=== PATIENT | male | born 1960 | race Caucasian/White ===

== ENCOUNTER → 2018-03-08 15:03 | Outpatient (CLI) | payer BC, SELFPAY ==
[2018-03-11 09:55] LABS: 25-Hydroxy D Total 53 ng/mL; 25-Hydroxy D2 <4.0 ng/mL; 25-Hydroxy D3 53 ng/mL
== END ==
PROVIDERS: PCP Student in an Organized Health Care Education/Training Program; Visit Provider Internal Medicine Sleep Medicine
DX: E55.9 Vitamin D deficiency, unspecified (principal)
CPT/HCPCS: 36415; 82306

== ENCOUNTER → 2018-03-23 15:01 | Outpatient (REF) | payer SELFPAY | LOC: OM 15:01 | PROVIDERS: PCP Student in an Organized Health Care Education/Training Program; Visit Provider Nurse Practitioner Family | DX: Z02.1 Encounter for pre-employment examination (principal) | CPT/HCPCS: 99455 ==

== ENCOUNTER 2018-12-27 08:59 | Outpatient (CLI) | payer MEDICAID, SELFPAY ==
[2018-12-27 10:09] LABS: Lithium 0.52 mmol/L (0.60-1.20)
[2018-12-27 10:24] LABS: Anion Gap 8.3 mmol/L (3-11); BUN 20 mg/dL (7-18); CO2 26.7 mmol/L (21.0-32.0); CREATININE 0.91 mg/dL (0.70-1.30); Chloride 104 mmol/L (98-107); Glucose 108 mg/dL (70-100); Potassium 4.5 mmol/L (3.5-5.1); Sodium 139 mmol/L (136-145); TSH (W/Ref FT4) 0.95 uIU/mL (0.358-3.74)
== END 2018-12-27 09:19 ==
PROVIDERS: PCP Nurse Practitioner Adult Health; Visit Provider Psychiatry & Neurology Psychiatry
DX: F31.81 Bipolar II disorder (principal); Z79.899 Other long term (current) drug therapy; Z51.81 Encounter for therapeutic drug level monitoring
CPT/HCPCS: 36415; 80048; 80178; 84443

== ENCOUNTER 2019-10-11 09:21 | Outpatient (CLI) | payer MEDICAID, SELFPAY ==
[2019-10-11 09:50] LABS: Bilirubin Small (Negative); Blood Negative (Negative); Clarity Clear (Clear); Glucose Negative (Negative); Ketones Negative (Negative); Leukocyte Esterase Trace (Negative); Nitrite Negative (Negative); Urobilinogen 0.2 EU/dL (Up TO 0.2)
[2019-10-11 09:50] LABS: Abs Immature Grans 0.03 k/cumm (0.0-0.09); Absolute Basophil Count 0.04 k/cumm (0.0-0.2); Absolute Eosinophil Count 0.36 k/cumm (0.0-0.7); Absolute Lymphocyte Count 2.05 k/cumm (1.2-3.4); Absolute Monocyte Count 0.56 k/cumm (0.11-0.7); Absolute Neutrophil Count 4.01 k/cumm (1.2-6.7); Basophils % 0.6; Eosinophils % 5.1; HCT 46.7 % (40.0-50.0); HGB 15.4 g/dL (13.5-17.5); Immature Grans % 0.4 %; Lymphocytes % 29.1; Mean Corpuscular Hemoglobin 30.1 pg (27.0-33.0); Mean Corpuscular Volume 91.2 fL (80-95); Mean Platelet Volume 9.2 fL (8.0-11.0); Monocytes % 7.9; Neutrophils % 56.9; Platelet Count 259 x1000/uL (130-400); RBC 5.12 m/cumm (4.50-6.00); RBC Distribution Width 14.2 % (11.8-14.1); White Blood Cell Count 7.05 k/cumm (4.4-10.8)
[2019-10-11 10:07] LABS: Bacteria Negative HPF (Negative); C & S Indicated? Yes; Casts Negative LPF (Negative); Crystals Negative HPF (Negative); Epithelial Cells Few HPF (Negative); Mucus Trace (Negative); RBC 0-2 HPF (0-2); WBC 20-50 HPF (0-5)
[2019-10-11 11:33] LABS: ALT 42 U/L (16-63); AST 20 U/L (15-37); Albumin 4.4 g/dL (3.4-5.0); Alkaline Phosphatase 74 U/L (46-116); Anion Gap 9.1 mmol/L (3-11); BUN 18 mg/dL (7-18); Bilirubin, Total 1.1 mg/dL (0.2-1.0); CO2 27.9 mmol/L (21.0-32.0); CREATININE 1.08 mg/dL (0.70-1.30); Calcium 9.2 mg/dL (8.5-10.1); Chloride 102 mmol/L (98-107); Cholesterol 269 mg/dL (<200); Glucose 96 mg/dL (74-106); HDL Cholesterol 46 mg/dL (40-60); Potassium 3.8 mmol/L (3.5-5.1); Sodium 139 mmol/L (136-145); TSH (W/Ref FT4) 1.61 uIU/mL (0.36-3.74); Total Protein 7.6 g/dL (6.4-8.2); Triglyceride 406 mg/dL (<150)
[2019-10-11 11:47] LABS: LDL CHOLESTEROL 159 mg/dL (<100)
[2019-10-12 04:34] LABS: Vitamin D 25 Total 47.8 ng/ml (30-100)
== END 2019-10-11 09:41 ==
PROVIDERS: PCP Nurse Practitioner Adult Health; Visit Provider Nurse Practitioner Adult Health
DX: K21.9 Gastro-esophageal reflux disease without esophagitis (principal); K22.719 Barrett's esophagus with dysplasia, unspecified; R03.0 Elevated blood-pressure reading, without diagnosis of hypertension; R63.8 Other symptoms and signs concerning food and fluid intake
CPT/HCPCS: 36415; 80053; 80061; 82306; 83721; 81003; 81015; 83735; 84443; 85025; 87086

== ENCOUNTER 2020-03-15 01:35 | Outpatient (CLI) | payer MEDICAID, SELFPAY ==
[2020-03-15 11:17] LABS: Bilirubin, Total 0.5 mg/dL (0.2-1.0); Calculated LDL 147 mg/dL (<100); Cholesterol 243 mg/dL (<200); HDL Cholesterol 46 mg/dL (40-60); Triglyceride 251 mg/dL (<150)
== END 2020-03-15 01:55 ==
PROVIDERS: PCP Nurse Practitioner Adult Health; Visit Provider Nurse Practitioner Adult Health
DX: E78.5 Hyperlipidemia, unspecified (principal); E78.1 Pure hyperglyceridemia; R17 Unspecified jaundice
CPT/HCPCS: 36415; 80061; 82247

== ENCOUNTER 2020-04-19 02:46 | Outpatient (CLI) | payer MEDICAID, SELFPAY ==
[2020-04-19 15:51] LABS: Folate 4.8 ng/mL (8.6-20.0); Vitamin B12 341 pg/mL (193-986)
[2020-04-24 10:25] LABS: Thiamine (Vitamin B1), WB 126 nmol/L (70-180)
== END 2020-04-19 03:06 ==
PROVIDERS: PCP Nurse Practitioner Adult Health; Visit Provider Nurse Practitioner Adult Health
DX: F10.20 Alcohol dependence, uncomplicated (principal); R20.2 Paresthesia of skin
CPT/HCPCS: 36415; 82607; 82746; 84425

== ENCOUNTER 2020-05-31 03:34 | Outpatient (CLI) | payer MEDICAID, SELFPAY ==
[2020-05-31 10:40] LABS: Lithium 0.89 mmol/L (0.60-1.20)
[2020-05-31 10:47] LABS: ALT 43 U/L (16-63); AST 23 U/L (15-37); Albumin 4.5 g/dL (3.4-5.0); Alkaline Phosphatase 73 U/L (46-116); Anion Gap 11.2 mmol/L (3-11); BUN 18 mg/dL (7-18); Bilirubin, Total 0.5 mg/dL (0.2-1.0); CO2 25.8 mmol/L (21.0-32.0); CREATININE 1.09 mg/dL (0.70-1.30); Calcium 9.1 mg/dL (8.5-10.1); Chloride 102 mmol/L (98-107); Glucose 93 mg/dL (74-106); Potassium 4.3 mmol/L (3.5-5.1); Sodium 139 mmol/L (136-145); Total Protein 7.7 g/dL (6.4-8.2)
[2020-05-31 10:55] LABS: TSH 1.18 uIU/mL (0.36-3.74)
[2020-06-03 16:39] LABS: HIV-1/2 Ag & Ab Screen Negative (Negative)
[2020-06-11 12:30] LABS: Hepatitis B Core Antibody Negative (Negative); Hepatitis B surface Ag Negative (Negative); Hepatitis C Ab w Rflx HCV PCR Negative (Negative)
[2020-06-11 12:31] LABS: Hepatitis A Antibody IgM Negative (Negative)
== END 2020-05-31 03:54 ==
PROVIDERS: Psychiatry & Neurology Psychiatry; PCP Nurse Practitioner Adult Health; Visit Provider Nurse Practitioner Adult Health
DX: F31.81 Bipolar II disorder (principal); F10.10 Alcohol abuse, uncomplicated; Z71.89 Other specified counseling
CPT/HCPCS: 36415; 80053; 86704; 86709; 86803; 87340; 87389; 80178; 84443

== ENCOUNTER 2020-09-25 20:58 | Emergency (ER) | payer MEDICAID, SELFPAY ==
[2020-09-25 21:03] VITALS: BP 153/95; PULSE 60; RESP 18; TEMP 36.4; O2SAT 99
--- NOTE | 2020-09-25 21:20 | ED.GENADUL_ITS ---
Discharge Plan Disposition Patient Disposition: HOME Condition: Improving Discharge Details Clinical Impression: Left maxillary sinusitis, Concussion Primary Care Provider: Kathrin Rosas ED Provider: Marcos Santiago Home Meds and New Rx's Prescriptions: New amoxicillin-pot clavulanate 875-125 mg tablet 1 tab PO BID 10 Days Qty: 20 RF: 0 Continued biotin 10,000 mcg capsule 10,000 mcg PO DAILY RF: 0 vitamin B complex [B Complex-Vitamin B12] Tablet 1 tab PO DAILY RF: 0 magnesium 200 mg tablet 500 mg PO DAILY RF: 0 fish oil-fat acid [id number] 1,200 mg (400 [id number]) capsule 1,300 cap PO DAILY RF: 0 aspirin 81 mg tablet,delayed release (DR/EC) 81 mg PO DAILY RF: 0 venlafaxine 150 mg tablet extended release 24hr 150 mg PO QHS RF: 0 amlodipine 5 mg tablet 5 mg PO DAILY Qty: 30 RF: 1 lithium carbonate 300 mg tablet 900 mg PO HS RF: 0 omeprazole 20 mg capsule,delayed release(DR/EC) 20 mg PO DAILY Qty: 90 RF: 3 trazodone 50 mg tablet 100 mg PO PRN RF: 0 cyanocobalamin (vitamin B-12) [Vitamin B-12] 1,000 mcg Tablet 1,000 mcg PO DAILY RF: 0 cholecalciferol (vitamin D3) 5,000 UNIT capsule 10,000 unit PO DAILY RF: 0 Discharge Instructions Instructions: Sinusitis (ED), Concussion (ED) Additional Instructions: Home to rest tonight. I recommend you take Benadryl 25 mg at bedtime to help with sleep and decongestion. Patient antibiotics as prescribed. You may continue Tylenol and/or ibuprofen as needed for pain. Return if develop a fever, stiff neck, worsening headache, or any other acute concerns. Medical Decision Making 60-year-old male presents from home. States he has had a left-sided headache since he slipped and fell on icy parking lot 2 days ago. Denies a loss of consciousness but feels he fell on his left side of his head. No neck/back/chest pain. Has mild left arm pain. No recent illness, no neck stiffness and no fever. He arrives here slightly hypertensive but with otherwise reassuring exam. Differential diagnosis includes concussion, benign cephalgia, acute skull injury or intracranial hemorrhage. IV access established, patient referred for noncontrast CT scan of the head, given parenteral medications and fluids. CT without acute intracranial injury. There is note of mucosal thickening left maxillary sinus, which may be consistent with maxillary sinusitis given the patient's localization of discomfort to that area. Following medications she is improved and rates his headache has diminished from 10 to 4 out of 10. He has had recurrent sinusitis in the past and therefore will elect to treat with a course of Augmentin. He is stable and improved, appropriate for discharge to home. HPI General Mode of arrival: ambulatory . Date/Time Provider Initiated Documentation: 09/25/20 20:58 . Limitations to Documentation: no limitations . Information obtained by: patient . History of Present Illness 60 year old M presents to the emergency department with the chief complaint of Left-sided headache, described as severe, Quality is described as dull and constant, and is localized to the head and left. Patient reports no radiation. Patient started experiencing this day(s) and it has been constant. No relieving factors improve symptom(s), No exacerbating factors reported . Patient notes headaches; denies loss of appetite and syncope. Patient did receive the following treatments prior to arrival, NSAID and other (Tylenol) Related Data Home Medications Medication Instructions Recorded Confirmed cholecalciferol (vitamin D3) 10,000 unit PO DAILY 12/16/17 09/25/20 lithium carbonate 300 mg tablet 900 mg PO HS tab 10/17/18 09/25/20 biotin 10,000 mcg capsule 10,000 mcg PO DAILY 10/06/19 09/25/20 aspirin 81 mg tablet,delayed 81 mg PO DAILY 12/15/19 09/25/20 release omeprazole 20 mg capsule,delayed 20 mg PO DAILY #90 cap 03/22/20 09/25/20 release venlafaxine 150 mg tablet,extended 150 mg PO QHS 04/15/20 09/25/20 release 24 hr fish oil-fat acid comb8-herb 1,300 cap PO DAILY cap 06/28/20 09/25/20 [id number] 1,200 mg (400 [id number]) cap magnesium 200 mg tablet 500 mg PO DAILY tab 06/28/20 09/25/20 vitamin B complex 1 tab PO DAILY 06/28/20 09/25/20 amlodipine 5 mg tablet 5 mg PO DAILY #30 tab 08/16/20 09/25/20 trazodone 50 mg tablet 100 mg PO PRN tab 08/16/20 09/25/20 amoxicillin-pot clavulanate 1 tab PO BID 10 Days #20 tab 09/25/20 cyanocobalamin (vitamin B-12) 1,000 mcg PO DAILY 09/25/20 09/25/20 [Vitamin B-12] Previous Rx's Medication Instructions Recorded omeprazole 20 mg capsule,delayed 20 mg PO DAILY #90 cap 03/22/20 release amlodipine 5 mg tablet 5 mg PO DAILY #30 tab 08/16/20 amoxicillin-pot clavulanate 1 tab PO BID 10 Days #20 tab 09/25/20 Allergies Allergy/AdvReac Type Severity Reaction Status Date / Time No Known Allergies Allergy Verified 09/25/20 21:15 General Stated Complaint: Headache HUBER: 3 Review of Systems Narrative: 6 systems reviewed and otherwise negative. [facility] Medical History Alcohol use disorder (05/03/12) Barretts esophagus (03/21/15) endoscopy 03/11/15 Gabriella, 09/28/17 Chirag, repeat 3 yrs 2020 Bipolar disorder (05/03/12) [facility] Bradycardia (02/15/15) Cerumen impaction Hx wax removal needed, lodged in today (01/12/20). PLan to use debrox x2-3 days before returning. Seeing ENT next month (January 2020). Erectile dysfunction (01/01/16) Effexor Esophageal reflux (05/03/12) Long-term Omeprazole History of vertigo EPisodes of sensation of room spinning .. has resolved on its own, but happens out of nowhere it seems Hypertriglyceridemia Increased BMI (05/03/12) Obstructive sleep apnea (10/19/15) Tx: Mouth guard & weight loss severe AHI 44.4 CPAP Enedelia Degre,STAFF NURSE ANESTHETIST ASIA (obstructive sleep apnea) Total bilirubin, elevated Tubular adenoma of colon (12/21/17) 3 yr f/u 2020 Surgical History Colonoscopy - MAC (12/21/17) EGD - MAC (09/28/17) EGD w/ Bx (03/11/15) Excision, Lesion (09/28/17) right shoulder skin tag Family History Mother , age 85 Alzheimer disease Diabetes Father , 88yo HF Essential hypertension Bladder cancer COPD (chronic obstructive pulmonary disease) Heart disease [place], CABG Neuropathy Other Multiple polyps of sigmoid colon Social History Smoking/Tobacco Use Status: Former Tobacco Use Quit Date: 07/26/16 Tobacco: How many years used: 15 Smoking risk assessment performed?: Yes Alcohol Intake: current Alcohol Intake frequency: 0-2 drinks per day Alcohol type: wine and hard liquor Details: When he was smoking - only had a cigar a few times a week. EO Drug use: Occasionally Substance use type: marijuana Details: rarely Adopted: No Caregiver/Support person: No Foster care: No Household members: none Housing: apartment Number of Children: 2 Communication Needs: None Education Level: college Details: Associate Business Do you need help understanding health information?: Never current occupation: Caregiver Do you think of yourself as: straight/heterosexual Current gender identity: male What is your relationship status?: Panel score (0-1 are the most socially isolated patients): 0 What type of physical activity do you participate in: walking Duration: 30-45 minutes/day Frequency: 3-4 times per week Ailyn/Restorationist: Jewish Seatbelt use: always Helmet use: Yes Drive intox or ride w/intox waste collection driver: No Working smoke detector in home: Yes Fire extinguisher in home: Yes Carbon monox detector in home: Yes Firearms in home: No Do you feel safe at home: Yes Victim of physical abuse: No Victim of emotional abuse: No Victim of sexual abuse: No Exam Narrative Exam Narrative: GEN: awake, alert, oriented 3. Pleasant, well groomed, interactive. HEAD: Normocephalic, atraumatic ENT: Mucous membranes moist, tympanic membranes clear bilaterally, external ear exam unremarkable EYES: PERRL, EOMI NECK: Full ROM, no ERICA, no menigismus, no step-off or deformity. CHEST/RESP: Nontender, clear to auscultation bilateral, no wheeze/rhonchi/rales Back: Nontender, no step-off or deformity. CARDIOVASCULAR: RRR, no murmur, rub pedro. 2+ Rad pulse bilateral ABDOMEN: Soft, nontender, no mass. +Bowel sounds EXT: Full ROM, no edema, no rash. Mild diffuse left humerus tenderness with out point bony tenderness Neuro: Grossly normal neurologic exam, conversant, interactive. Psych: Speech fluent, thoughts congruent, affect normal Course Vital Signs Vital signs: Vital Signs Temperature 36.4 C L 09/25/20 21:03 Pulse 60 09/25/20 21:03 Respiratory Rate 18 09/25/20 21:03 Blood Pressure 153/95 H 09/25/20 21:03 Pulse Oximetry 99 09/25/20 21:03 Temperature 36.4 C L 09/25/20 21:03 Temperature Source Skin 09/25/20 21:03 Pulse 60 09/25/20 21:03 Respiratory Rate 18 09/25/20 21:03 Respiratory Effort Non-Labored 09/25/20 21:15 Blood Pressure 153/95 H 09/25/20 21:03 Blood Pressure Position Sitting 09/25/20 21:03 Pulse Oximetry 99 09/25/20 21:03 Oxygen Delivery Method Room Air 09/25/20 21:03 Oxygen Flow Rate 0 09/25/20 21:03 Pain Level 8 09/25/20 21:17
--- NOTE | 2020-09-25 21:30 | DI.CT_ITS ---
EXAM: CT HEAD WO CLINICAL HISTORY: L headache after fall. TECHNIQUE: Imaging Protocol: Axial computed tomography images with coronal and sagittal reformatted images were created and reviewed COMPARISON: No exams were available for comparison FINDINGS: Ventricles and Extra axial spaces: Normal in size and morphology for the patient's age. Hemorrhage: None. Cerebral parenchyma: Normal. No evidence of acute territorial infarct. Midline shift: None. Brainstem/Cerebellum: Normal. Calvarium: Normal. Visualized Paranasal sinuses/Mastoids: Mild mucosal thickening in the left maxillary sinus. The jodie ining visualized paranasal sinuses and mastoid air cells are clear. Soft Tissues: Unremarkable. IMPRESSION: No acute intracranial process. RADIATION DOSE DELIVERED: 804.05mGy.cm Total DLP DATA REPOSITORY: All CT scans at this facility are submitted to the National Radiology Data Registry (NRDR) Dose Index Registry (DIR) with the [employer] (A[employer]). RADIATION OPTIMIZATION: All CT scans at this facility use at least one of these dose optimization te chniques: automated exposure control; mA and/or kV adjustment per patient size (includes targeted exa ms where dose is matched to clinical indication); or iterative reconstruction.
--- NOTE | 2020-09-25 21:42 | DI.VRAD_ITS ---
PROCEDURE INFORMATION: Exam: CT Head Without Contrast Exam date and time: 09/25/2020 9:25 PM Age: 60 years old Clinical indication: Pain; Post-traumatic; Patient HX: Fell on ice 2 days ago, no loc, no HX migraines, intense headache x2 days. TECHNIQUE: Imaging protocol: Computed tomography of the head without contrast. Total images: 1025 Radiation optimization: All CT scans at this facility use at least one of these dose optimization techniques: automated exposure control; mA and/or kV adjustment per patient size (includes targeted exams where dose is matched to clinical indication); or iterative reconstruction. COMPARISON: No relevant prior studies available. FINDINGS: Brain: No intra or extra axial bleed. No edema or mass effect. The central zhong structures and cortical ribbon are maintained. Cerebral ventricles: No hydrocephalus. Basal cisterns are patent. Bones/joints: There is a probable old ununited left zygomatic arch fracture. Paranasal sinuses: There is a tiny amount mucosal thickening in the visualized left maxillary sinus Mastoid air cells: Mastoid air cells are clear. Orbital cavity: Unremarkable. Soft tissues: Unremarkable. IMPRESSION: No acute intracranial abnormality. Dictated and Authenticated by: Marcos Mejia MD. Ordering:VAMSI Rodríguez MD
[2020-09-25] MEDS: Metoclopramide 10 MG/2 ML VIAL IVP (22:05)
[2020-09-25] MEDS: Ketorolac 30 MG/ML VIAL IVP (22:06)
[2020-09-25] MEDS: Normal Saline 1,000 ML 1000 ML IV (22:06)
[2020-09-25] MEDS: Dexamethasone 4 MG/ML VIAL IVP (22:06)
[2020-09-25] MEDS: Amox. 875/Clav. 125, 2 TABS/BTL 1 TAB PO (22:42)
[2020-09-25 22:43] VITALS: BP 132/81; PULSE 55; RESP 16; O2SAT 98
[2020-09-25] MEDS: diphenhydrAMINE 25 MG CAP PO (22:43)
== END 2020-09-25 22:48 | disposition home or self-care (01) ==
PROVIDERS: Emergency Provider Emergency Medicine; PCP Nurse Practitioner Adult Health
DX: S06.0X0A Concussion without loss of consciousness, initial encounter (principal); W00.0XXA Fall on same level due to ice and snow, initial encounter; J01.00 Acute maxillary sinusitis, unspecified
CPT/HCPCS: 96361; 96374; 96375; 99284; 70450; J1100; J1885; J2765

== ENCOUNTER 2021-01-14 03:12 | Outpatient (CLI) | payer MEDICAID, SELFPAY ==
[2021-01-14 11:23] LABS: Abs Immature Grans 0.05 10^3/uL (0.0-0.06); Absolute Basophil Count 0.06 10^3/uL (0.0-0.2); Absolute Eosinophil Count 0.28 10^3/uL (0.0-0.7); Absolute Lymphocyte Count 1.82 10^3/uL (1.2-3.4); Absolute Monocyte Count 0.38 10^3/uL (0.1-0.8); Absolute Neutrophil Count 3.67 10^3/uL (1.2-6.7); Eosinophils % 4.5; HCT 43.3 % (40.0-50.0); HGB 14.1 g/dL (13.5-17.5); Immature Grans % 0.8; Lymphocytes % 29.1; MCH 29.7 pg (27.0-33.0); MCHC 32.6 % (32.0-36.0); MCV 91.4 fL (80-95); MPV 9.3 fL (8.0-11.0); Monocytes % 6.1; Neutrophils % 58.5; Nucleated RBC 0 %; Platelet Count 254 10^3/uL (130-400); RBC 4.74 10^6/uL (4.36-5.78); RDW 13.2 % (11.8-14.1); RDW-SD 44.8 fL; WBC 6.26 10^3/uL (4.4-10.8)
[2021-01-14 11:40] LABS: Hemoglobin A1C 5.2 % (<5.7)
[2021-01-14 13:31] LABS: ALT 34 U/L (16-63); AST 17 U/L (15-37); Albumin 4.2 g/dL (3.4-5.0); Alkaline Phosphatase 80 U/L (46-116); Anion Gap 11.1 mmol/L (3-11); BUN 13 mg/dL (7-18); Bilirubin, Total 0.6 mg/dL (0.2-1.0); CO2 24.9 mmol/L (21.0-32.0); CREATININE 0.9 mg/dL (0.70-1.30); Calcium 8.9 mg/dL (8.5-10.1); Chloride 104 mmol/L (98-107); FREE T4 0.83 ng/dL (0.76-1.46); Glucose 109 mg/dL (74-106); Magnesium 2.3 mg/dL (1.8-2.4); Potassium 4.1 mmol/L (3.5-5.1); Sodium 140 mmol/L (136-145); TSH 0.77 uIU/mL (0.36-3.74); Total Protein 7.5 g/dL (6.4-8.2)
[2021-01-14 13:55] LABS: Iron 106 ug/dL (65-175); Total Iron Binding Capacity 368 ug/dL (250-450); Transferrin Sat 29 % (20-55)
[2021-01-14 14:46] LABS: Ferritin 881 ng/mL (26-388); Folate 19.1 ng/mL (8.6-20.0); Vitamin B12 746 pg/mL (193-986)
[2021-01-14 16:24] LABS: T3,Free 3.6 pg/mL (2.8-5.3)
[2021-01-14 16:29] LABS: Calculated LDL 155 mg/dL (<100); Cholesterol 267 mg/dL (<200); HDL Cholesterol 50 mg/dL (40-60); Triglyceride 310 mg/dL (<150)
[2021-01-15 11:21] LABS: Homocysteine 14.2 umol/L (5.0-13.9)
[2021-01-16 10:01] LABS: Lipoprotein (a) 62 mg/dL (<=30)
[2021-01-18 08:08] LABS: Thiamine (Vitamin B1), WB 143 nmol/L (70-180)
== END 2021-01-14 03:13 | disposition home or self-care (01) ==
LOC: LBO 03:12
PROVIDERS: PCP Nurse Practitioner Adult Health; Visit Provider Naturopath
DX: E78.5 Hyperlipidemia, unspecified (principal); I10 Essential (primary) hypertension; R53.83 Other fatigue; F10.20 Alcohol dependence, uncomplicated
CPT/HCPCS: 36415; 80053; 80061; 83090; 83695; 82607; 82728; 82746; 83036; 83540; 83550; 83735; 84425; 84439; 84443; 84481; 85025

== ENCOUNTER 2021-02-20 04:27 | Outpatient (CLI) | payer MEDICAID, SELFPAY ==
[2021-02-27 02:49] LABS: Result Summary NEGATIVE; Specimen WB Whole Blood
== END 2021-02-20 04:28 | disposition home or self-care (01) ==
LOC: LBO 04:27
PROVIDERS: PCP Nurse Practitioner Adult Health; Visit Provider Naturopath
DX: R77.8 Other specified abnormalities of plasma proteins (principal); R19.7 Diarrhea, unspecified; D12.6 Benign neoplasm of colon, unspecified
CPT/HCPCS: 36415; 81256

== ENCOUNTER 2021-02-26 02:53 | Outpatient (CLI) | payer MEDICAID, SELFPAY ==
[2021-02-26 12:15] LABS: Source Nasal/Nares
[2021-02-26 14:24] LABS: COVID-19 PCR Negative (Negative)
== END 2021-02-26 02:54 | disposition home or self-care (01) ==
LOC: LBO 02:54
PROVIDERS: PCP Nurse Practitioner Adult Health; Visit Provider Surgery
DX: Z20.822 Contact with and (suspected) exposure to COVID-19 (principal); Z01.818 Encounter for other preprocedural examination
CPT/HCPCS: 87635

== ENCOUNTER 2021-03-03 09:39 | Day surgery (SDC) | payer MEDICAID, SELFPAY ==
--- NOTE | 2021-03-03 06:51 | ENDO_ITS ---
Date of service: 03/03/21 Time of Service: 10:36 Endoscopy Report DATE OF PROCEDURE: 03/03/21 PRE-OP DIAGNOSIS: Diarrhea, Sanchez's, Hx of polyps POST-OP DIAGNOSIS: same (polyps, diverticulosis, gastritis, esophagitis) PROCEDURE: 1. EGD with biopsies 2. Colonoscopy with polypectomy SURGEON: Yara Beard ANESTHESIA TYPE: General:No Airway (ASA 2/ Kole Sifuentes, TANNA) ESTIMATED BLOOD LOSS: 5 PATHOLOGY: other (Bx of antrum and GE junction, Gastric polyp, Transverse, descending, sigmoid and rectal polyps) COMPLICATIONS: None DISPOSITION: same day INDICATIONS: (2) Tubular adenoma of colon: William is back to see me for a screening colonoscopy. His last colonoscopy was 2017 at which time he had precancerous polyps as well as hyperplastic polyps he has no family history of colon cancer. 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 He has not had any melena or hematochezia. He has not had any weight loss. We discussed colonoscopy risks and benefits and he wished to proceed. Risks, benefits and complications have been reviewed. Complications include but are not limited to bleeding, pain, perforation, missed small lesion/polyp, sore throat, aspiration and adverse reaction to the medications. Questions were entertained and answered to their satisfaction and they wished to proceed. No guarantees were given or implied. I will have him stop his aspirin 5 days prior to the procedure. I also asked him not to take his supplements the day before. Proceed with colonoscopy under sedation. (3) Barretts esophagus: William is back today for another upper endoscopy. He has a history of Sanchez's esophagitis. His reflux has been well controlled on omeprazole 20 mg daily. He does have a feeling of pressure in his neck once in a while usually after he has had a lot of alcohol the night before. He did stop drinking again a week ago tried to get into better health. He is at this point due for an upper endoscopy. Risks and benefits were reviewed with him as well as the procedure. Risks, benefits and complications have been reviewed. Complications include but are not limited to bleeding, pain, perforation, sore throat, aspiration, and adverse reaction to the medications. Questions were entertained and answered to their satisfaction and they wished to proceed. No guarantees were given or implied. PREP: Miralax/Dulcolax PROCEDURE START TIME: 10:36 PROCEDURE END TIME: 11:12 COLONOSCOPY RETRACTION TIME: 23 minutes FINDINGS: mild inflammation in the stomach and esophagus, gastric polyp (benign appearing) Transverse, descending and sigmoid polyp, rectal polyp Mild diverticulosis PROCEDURE DESCRIPTION: After informed consent was obtained the patient was take to the procedure room and placed in a supine position. Monitors were applied and a time out was done. The patients name, date of , procedure type, allergies to medications and metal in their body was reviewed. A bite block was placed and the patient was sedated. Once sedated and comfortable the gastroscope was advanced through the oropharynx which was grossly normal into the esophagus. The proximal and mid- esophagus were normal. In the distal esophagus there was inflammation noted. The scope was advanced into the stomach and through the pylorus into the 3rd portion of the duodenum. The duodenum was noted to be normal. The scope was retracted back into the stomach. There was mild to moderate inflammation noted in the antrum and body. Biopsies were done to rule out H. pylori. There were no ulcers. There were a few benign gastric polyps. One was removed. The scope was retro-flexed. The cardia and fundus were noted to be normal. There was no hiatal hernia noted. The scope was retracted back into the esophagus and biopsies were done of the GE junction to rule out Sanchez's. The Z line was irregular. The GE junction was at 35 cm. While the patient was still sedated they were placed in a left decubitous position. A rectal exam was done. External exam was normal. Internal exam revealed a decreased sphincter tone and no palpable masses. The prostate felt mildly enlarged and smooth. The scope was then introduced and retro-flexed. Grade 1 internal hemorrhoids were identified. No masses or polyps were identified on retroflexion. The scope was then advanced to the cecum without difficulty. The ileocecal valve and appendiceal orifice were identified. The prep was adequate. The scope was then slowly retracted over 23 minutes back into the rectum. Polyps were removed with hot snare in the transverse colon and with cold forceps in the descending colon, sigmoid colon and in the rectum. There was mild mancini- diverticulosis noted. The scope was removed and the patient was woken up and taken back to Same day surgery in stable condition. The patient tolerated the procedure well and there were no immediate complications. Follow up: 5 years
--- NOTE | 2021-03-03 06:54 | W.PM.DSUDISC ---
Discharge Plan Disposition Patient Disposition: HOME Condition: Good Discharge Details Reason For Visit: COlo/EGD Attending Provider: Yraa Beard Primary Care Provider: Kathrin Rosas Home Meds and New Rx's Prescriptions: Continued biotin 10,000 mcg capsule 10,000 mcg PO DAILY RF: 0 magnesium 200 mg tablet 500 mg PO DAILY RF: 0 fish oil-fat acid comb.[id number] 1,200 mg (400 [id number]) capsule 1 cap PO DAILY RF: 0 aspirin 81 mg tablet,delayed release (DR/EC) 81 mg PO DAILY RF: 0 venlafaxine 150 mg tablet extended release 24hr 150 mg PO QHS RF: 0 sildenafil [Viagra] 100 mg tablet 50 - 100 mg PO DAILY PRN (Reason: sexual activity) Qty: 20 RF: 0 fortify 1 cap PO DAILY RF: 0 lithium carbonate 300 mg tablet 900 mg PO HS RF: 0 omeprazole 20 mg capsule,delayed release(DR/EC) 20 mg PO DAILY Qty: 90 RF: 3 trazodone 50 mg tablet 100 mg PO PRN RF: 0 amlodipine 5 mg tablet 5 mg PO DAILY Qty: 90 RF: 3 cyanocobalamin (vitamin B-12) [Vitamin B-12] 1,000 mcg Tablet 1,000 mcg PO DAILY RF: 0 cholecalciferol (vitamin D3) 125 mcg (5,000 unit) capsule 5,000 unit PO DAILY RF: 0 Discontinued bisacodyl [Dulcolax (bisacodyl)] 5 mg tablet,delayed release (DR/EC) 5 mg PO ONCE Qty: 4 RF: 0 polyethylene glycol 3350 17 gram powder in packet 255 g PO DAILY Qty: 15 RF: 0 Discharge Instructions Instructions: Colorectal Polyps (DC), Diverticulosis (DC), Gastritis (DC), Esophagitis (DC) Additional Instructions: Findings: diverticula polyps x4 mild gastritis and esophagitis Follow up: 5 years for next colonoscopy Please call if you develop: fevers >101.5 Nausea or Vomiting Abdominal pain that is not transient Rectal bleeding that is more then a tbsp A hard abdomen and inability to pass gas DAY SURGERY UNIT POST ENDOSCOPY INSTRUCTIONS Instructions for everyone who is given Anesthesia: For your safety, please do the following for the next 24 Hours: a. Do not drive or operate dangerous equipment b. Do not drink alcohol beverages or use any recreational drugs for the first 24 hours or while taking pain medications. The medications in your body may have a reaction that can be dangerous. c. Do not make any important decisions or sign any important papers 1. Generally there are no restrictions on your activity after a day or so has gone by, but you may feel a bit fatigued for a few days. 2. After you arrive home you may have a light meal and return to a normal diet as you can tolerate it without feeling sick to your stomach. 3. After surgery, you may feel pain or discomfort. This should be only transient, but if it persists please contact your doctor. 4. If there are any questions regarding the findings of your procedure, please feel free to contact your doctor. 6. If you are unable to contact your doctor with a problem, contact the hospital at [phone]. 7. Continue all your regular medications unless directed otherwise. I understand the above instructions and have no questions. Signature of Patient or Responsible Adult Escort Date/Time Name of Responsible Adult Escort Signature of Nurse Date/Time Activity:: Activity as Tolerated Diet:: HIgh Fiber diet Discharge Orders Discharge Orders: Discharge Order (Routine); Ordered 03/03/21 Ordered By: Yara Beard
[2021-03-03 09:45] VITALS: BP 132/87; PULSE 54; RESP 18; TEMP 36.6; O2SAT 98
--- NOTE | 2021-03-03 09:56 | W.ANESPRE ---
General Info Height: 5 ft 10.25 in Weight: 103.141 kg Body Mass Index (BMI): 32.3 Surgical Procedure: Operation Date: 03/03/21 10:35 Proposed Procedures Side Surgeon p Colonoscopy/Gastroscopy Yara Beard MD Meds Allergies and Home Medications Allergies Allergy/AdvReac Type Severity Reaction Status Date / Time No Known Allergies Allergy Verified 02/28/21 13:58 Home Medication Medication Instructions Recorded lithium carbonate 300 mg tablet 900 mg PO HS tab 10/17/18 biotin 10,000 mcg capsule 10,000 mcg PO DAILY 10/06/19 aspirin 81 mg tablet,delayed 81 mg PO DAILY 12/15/19 release omeprazole 20 mg capsule,delayed 20 mg PO DAILY #90 cap 03/22/20 release venlafaxine 150 mg tablet,extended 150 mg PO QHS 04/15/20 release 24 hr magnesium 200 mg tablet 500 mg PO DAILY tab 06/28/20 trazodone 50 mg tablet 100 mg PO PRN tab 08/16/20 cyanocobalamin (vitamin B-12) 1,000 mcg PO DAILY 09/25/20 [Vitamin B-12] amlodipine 5 mg tablet 5 mg PO DAILY #90 tab 10/18/20 fish oil-fat acid comb8-herb 1 cap PO DAILY cap 10/18/20 [id number] 1,200 mg (400 [id number]) cap sildenafil 100 mg tablet 50 - 100 mg PO DAILY PRN #20 tab 12/25/20 cholecalciferol (vitamin D3) 125 5,000 unit PO DAILY cap 02/14/21 mcg (5,000 unit) capsule bisacodyl 5 mg tablet,delayed 5 mg PO ONCE #4 tab 02/20/21 release fortify 1 cap PO DAILY 02/20/21 polyethylene glycol 3350 17 gram 255 g PO DAILY #15 ea 02/20/21 oral powder packet Current Visit Medications: Current Medications Generic Name Dose Route Start Last Admin Trade Name Freq PRN Reason Stop Dose Admin Hyoscyamine Sulfate 0.125 mg 03/03/21 06:55 Hyoscyamine 0.125 Mg Sl/Oral/Chew SL DIRECTED PRN Ringer's Solution 1,000 mls @ 80 mls/hr 03/03/21 06:00 IV 03/30/21 23:59 INFUSION VIGNESH IV Miscellaneous Supplies 1 each 03/03/21 06:00 Iv Access IV 03/30/21 23:59 DIRECTED VIGNESH Ondansetron HCl 4 mg 03/03/21 06:55 Ondansetron 4 Mg/2 Ml Vial IVP Q4H PRN PRN Nausea / Vomiting Sodium Chloride 0 ml 03/03/21 06:00 Normal Saline Flush 10 Ml Syr IV 03/30/21 23:59 PRN PRN Sodium Chloride 0 ml 03/03/21 06:00 Normal Saline 10 Ml Vial IJ 03/30/21 23:59 DIRECTED PRN Sterile Water 0 ml 03/03/21 06:00 Water,Injection,Sterile 10 Ml Vial IJ 03/30/21 23:59 DIRECTED PRN PFSH Active Problems Active Problems: Problem Status Onset Code Rupture of right long head biceps tendon S46.111A Unspecified injury of muscle, fascia and tendon of other parts of biceps, right arm, initial encounter S46.201A Essential (primary) hypertension I10 History of vertigo Z87.898 Total bilirubin, elevated R17 Hypertriglyceridemia E78.1 Increased BMI 05/03/12 R63.8 Tubular adenoma of colon 12/21/17 D12.6 Obstructive sleep apnea 10/19/15 G47.33 Erectile dysfunction 01/01/16 N52.9 Esophageal reflux 05/03/12 K21.9 Bipolar disorder 05/03/12 F31.9 Barretts esophagus 03/21/15 K22.70 Alcohol use disorder 05/03/12 Medical History Medical History Alcohol use disorder (05/03/12) Barretts esophagus (03/21/15) endoscopy 03/11/15 Gabriella, 09/28/17 Chirag, repeat 3 yrs 2020 Bipolar disorder (05/03/12) NKHS Bradycardia (02/15/15) Cerumen impaction Hx wax removal needed, lodged in today (01/12/20). PLan to use debrox x2-3 days before returning. Seeing ENT next month (January 2020). COVID-19 Dx'ed State of [place] (see scanned docs) 11/23/2020 Erectile dysfunction (01/01/16) Effexor Esophageal reflux (05/03/12) Long-term Omeprazole History of vertigo EPisodes of sensation of room spinning .. has resolved on its own, but happens out of nowhere it seems Hypertriglyceridemia Increased BMI (05/03/12) Obstructive sleep apnea (10/19/15) Tx: Mouth guard & weight loss severe AHI 44.4 CPAP Enedelia Degre,[employer] ASIA (obstructive sleep apnea) SARS-CoV-2 positive (11/24/20) pt reported, has had both imms. cgc Total bilirubin, elevated Tubular adenoma of colon (12/21/17) 3 yr f/u 2020 Surgical History Surgical History Colonoscopy - MAC (12/21/17) EGD - MAC (09/28/17) EGD w/ Bx (03/11/15) Excision, Lesion (09/28/17) right shoulder skin tag Tobacco Smoking/Tobacco Use Status: Former Tobacco Use Tobacco: How many years used: 15 Second hand exposure: Yes Alcohol Alcohol Intake: former Year quit: 2020 Counseling given: No Substance Use Substance use: Occasionally Substance use type: marijuana Vital Signs and Lab Results Lab Results Blood Type / Crossmatch: No Data to Display Complete Blood Count: No Data to Display Complete Metabolic Panel: No Data to Display Liver Function Panel: No Data to Display Coagulation Panel: No Data to Display Cardiac Panel: No Data to Display Arterial Blood Gas: No Data to Display Venous Blood Gas: No Data to Display Pancreas Panel: No Data to Display Thyroid Panel: No Data to Display Infectious Disease: Coronavirus (COVID-19)(PCR) Negative (Negative) 02/26/21 10:44 02/26/21 Coronavirus 2019 Source Nasal/Nares 02/26/21 10:44 02/26/21 Blood Cultures: No Data to Display Toxicology Panel: No Data to Display Anesthesia Assessment and Plan Pertinent Negatives Pertinent Negatives: Other (Chronic GERD, barretts esophagus)
[2021-03-03] MEDS: Lactated Ringers 1,000 ML 80 ML IV (10:19)
--- NOTE | 2021-03-03 10:20 | ANES.PREOP_ITS ---
General Info Date of Service Date Performed: 03/03/21 Height: 5 ft 10.25 in Weight: 103.141 kg Body Mass Index (BMI): 32.3 Surgical Procedure: Operation Date: 03/03/21 10:35 Proposed Procedures Side Surgeon p Colonoscopy/Gastroscopy Yara Beard MD Meds Allergies and Home Medications Allergies Allergy/AdvReac Type Severity Reaction Status Date / Time No Known Allergies Allergy Verified 03/03/21 10:03 Home Medication Medication Instructions Recorded lithium carbonate 300 mg tablet 900 mg PO HS tab 10/17/18 biotin 10,000 mcg capsule 10,000 mcg PO DAILY 10/06/19 aspirin 81 mg tablet,delayed 81 mg PO DAILY 12/15/19 release omeprazole 20 mg capsule,delayed 20 mg PO DAILY #90 cap 03/22/20 release venlafaxine 150 mg tablet,extended 150 mg PO QHS 04/15/20 release 24 hr magnesium 200 mg tablet 500 mg PO DAILY tab 06/28/20 trazodone 50 mg tablet 100 mg PO PRN tab 08/16/20 cyanocobalamin (vitamin B-12) 1,000 mcg PO DAILY 09/25/20 [Vitamin B-12] amlodipine 5 mg tablet 5 mg PO DAILY #90 tab 10/18/20 fish oil-fat acid comb8-herb 1 cap PO DAILY cap 10/18/20 [id number] 1,200 mg (400 [id number]) cap sildenafil 100 mg tablet 50 - 100 mg PO DAILY PRN #20 tab 12/25/20 cholecalciferol (vitamin D3) 125 5,000 unit PO DAILY cap 02/14/21 mcg (5,000 unit) capsule bisacodyl 5 mg tablet,delayed 5 mg PO ONCE #4 tab 02/20/21 release fortify 1 cap PO DAILY 02/20/21 polyethylene glycol 3350 17 gram 255 g PO DAILY #15 ea 02/20/21 oral powder packet Current Visit Medications: Current Medications Generic Name Dose Route Start Last Admin Trade Name Freq PRN Reason Stop Dose Admin Hyoscyamine Sulfate 0.125 mg 03/03/21 06:55 Hyoscyamine 0.125 Mg Sl/Oral/Chew SL DIRECTED PRN Ringer's Solution 1,000 mls @ 80 mls/hr 03/03/21 06:00 03/03/21 10:19 IV 03/30/21 23:59 80 mls/hr INFUSION VIGNESH Administration IV Miscellaneous Supplies 1 each 03/03/21 06:00 Iv Access IV 03/30/21 23:59 DIRECTED VIGNESH Ondansetron HCl 4 mg 03/03/21 06:55 Ondansetron 4 Mg/2 Ml Vial IVP Q4H PRN PRN Nausea / Vomiting Sodium Chloride 0 ml 03/03/21 06:00 Normal Saline Flush 10 Ml Syr IV 03/30/21 23:59 PRN PRN Sodium Chloride 0 ml 03/03/21 06:00 Normal Saline 10 Ml Vial IJ 03/30/21 23:59 DIRECTED PRN Sterile Water 0 ml 03/03/21 06:00 Water,Injection,Sterile 10 Ml Vial IJ 03/30/21 23:59 DIRECTED PRN PFSH Active Problems Active Problems: Problem Status Onset Code Rupture of right long head biceps tendon S46.111A Unspecified injury of muscle, fascia and tendon of other parts of biceps, right arm, initial encounter S46.201A Essential (primary) hypertension I10 History of vertigo Z87.898 Total bilirubin, elevated R17 Hypertriglyceridemia E78.1 Increased BMI 05/03/12 R63.8 Tubular adenoma of colon 12/21/17 D12.6 Obstructive sleep apnea 10/19/15 G47.33 Erectile dysfunction 01/01/16 N52.9 Esophageal reflux 05/03/12 K21.9 Bipolar disorder 05/03/12 F31.9 Barretts esophagus 03/21/15 K22.70 Alcohol use disorder 05/03/12 Medical History Medical History Alcohol use disorder (05/03/12) Barretts esophagus (03/21/15) endoscopy 03/11/15 Gabriella, 09/28/17 Chirag, repeat 3 yrs 2020 Bipolar disorder (05/03/12) NKHS Bradycardia (02/15/15) Cerumen impaction Hx wax removal needed, lodged in today (01/12/20). PLan to use debrox x2-3 days before returning. Seeing ENT next month (January 2020). COVID-19 Dx'ed State of [place] (see scanned docs) 11/23/2020 Erectile dysfunction (06/08/16) Effexor Esophageal reflux (05/03/12) Long-term Omeprazole History of vertigo EPisodes of sensation of room spinning .. has resolved on its own, but happens out of nowhere it seems Hypertriglyceridemia Increased BMI (05/03/12) Obstructive sleep apnea (10/19/15) Tx: Mouth guard & weight loss severe AHI 44.4 CPAP Enedelia Degre,[employer] (obstructive sleep apnea) SARS-CoV-2 positive (11/24/20) pt reported, has had both imms. cgc Total bilirubin, elevated Tubular adenoma of colon (12/21/17) 3 yr f/u 2020 Surgical History Surgical History Colonoscopy - MAC (12/21/17) EGD - MAC (09/28/17) EGD w/ Bx (03/11/15) Excision, Lesion (09/28/17) right shoulder skin tag Tobacco Smoking/Tobacco Use Status: Former Tobacco Use Tobacco: How many years used: 15 Second hand exposure: Yes Alcohol Alcohol Intake: former Year quit: 2020 Counseling given: No Substance Use Substance use: Occasionally Substance use type: marijuana Vital Signs and Lab Results Vital Signs Most Recent Vital Signs in EMR: Most Recent Vital Signs Temp Pulse Resp BP Pulse Ox 36.6 C 54 L 18 132/87 98 03/03/21 09:45 03/03/21 09:45 03/03/21 09:45 03/03/21 09:45 03/03/21 09:45 Lab Results Blood Type / Crossmatch: No Data to Display Complete Blood Count: No Data to Display Complete Metabolic Panel: No Data to Display Liver Function Panel: No Data to Display Coagulation Panel: No Data to Display Cardiac Panel: No Data to Display Arterial Blood Gas: No Data to Display Venous Blood Gas: No Data to Display Pancreas Panel: No Data to Display Thyroid Panel: No Data to Display Infectious Disease: Coronavirus (COVID-19)(PCR) Negative (Negative) 02/26/21 10:44 02/26/21 Coronavirus 2019 Source Nasal/Nares 02/26/21 10:44 02/26/21 Blood Cultures: No Data to Display Toxicology Panel: No Data to Display Anesthesia Assessment and Plan Anesthesia History Personal History: No History of Anesthesia Complications Family History: No Family History of Anesthesia Complications Exercise Tolerance Exercise Tolerance: Metabolic Equivalents>4 Pertinent Negatives Pertinent Negatives: No Major Cardiovascular Symptoms or Complaints, No Major Pulmonary Symptoms or Complaints, No History of CVA/TIA and Other (Chronic GERD, barretts esophagus) Cardiac & Pulmonary Exam Cardiac Exam: Normal S1/S2 Heart Sounds Pulmonary Exam: Clear Bilateral Breath Sounds Airway Exam Known Difficult Airway: No Mallampati Class: 1 Mouth Opening: Normal (> 3cm) Thyromental Distance: Greater than 3 cm Neck Range of Motion: Full ROM Neck Circumference: Normal Teeth Condition: Normal Dentition ASA Classification ASA Score: ASA 2 Emergency Case?: No NPO Status NPO Status: NPO Clears >2 hours, Solids >8 hours Anesthesia Plan Resuscitation Status: Full Code Anesthesia Technique: General Anesthesia Airway Planned: Natural Airway Monitors Used: Standard Monitors
[2021-03-03 10:29] VITALS: BMI 32.3
--- NOTE | 2021-03-03 10:37 | STOM_PTH ---
PATIENT: Marcos Zamora LOC: [facility] U#:[id number] AGE/SX: 60/M ROOM: RE03/03/[address]: Yara Beard MD : 1960 BED: DIS: 03/03/2021 SPEC #: [id number] RECD: 03/03/21 12:53 STATUS: NIKOLAY RE #: [id number] VIKI: 03/03/21 10:[address]: Yara Beard DEPT: Surgical Specimen RECD BY: Pennie Wilson ENTERED: 03/03/21 12:55 SP TYPE: STOMACH OTHR DR: Kathrin Rosas APRN Tissues: 1 - STOMACH BIOPSY 2 - STOMACH BIOPSY 3 - ESOPHAGUS BIOPSY 4 - BIOPSY BOWEL 5 - BIOPSY BOWEL 6 - BIOPSY BOWEL 7 - BIOPSY BOWEL Procedures: GROSS AND MICRO LEVEL 4 Comments: [id number]
[2021-03-03 11:20] VITALS: BP 106/66; PULSE 50; RESP 16; TEMP 36.3; O2SAT 96
[2021-03-03 11:45] VITALS: BP 124/75; PULSE 44; RESP 18; TEMP 36.7; O2SAT 18
--- NOTE | 2021-03-03 14:17 | W.ANESPOSTOP ---
Postoperative Evaluation Date, Time and Location Date Performed: 03/03/21 Time Performed: 11:50 Patient Location: Day Surgery Unit Vital Signs Most Recent Imported Vital Signs: Most Recent Vital Signs Temp Pulse Resp BP Pulse Ox 36.7 C 44 L 18 124/75 18 L 03/03/21 11:45 03/03/21 11:45 03/03/21 11:45 03/03/21 11:45 03/03/21 11:45 Pain Score Most Recent Pain Score: Most Recent Pain Score Pain Level 0 03/03/21 11:45 Assessment Mental Status: Awake (Alert & Oriented to Patient Baseline) Airway and Respiratory Function: Patent airway with normal (patient baseline) respiratory exam Cardiovascular Function: Hemodynamically Stable Hydration Status: Adequately Hydrated Nausea & Vomiting: No Nausea or Vomiting Pain: Pt. Denies Any Pain Peripheral Nerve Block: Patient did not receive a nerve block
== END 2021-03-03 12:20 | disposition home or self-care (01) ==
LOC: SUR 09:41
PROVIDERS: PCP Nurse Practitioner Adult Health; Visit Provider Surgery
PROC: (CPT 43251; principal; 2021-03-03 10:30)
DX: Z12.11 Encounter for screening for malignant neoplasm of colon (principal); D12.3 Benign neoplasm of transverse colon; K57.30 Diverticulosis of large intestine without perforation or abscess without bleeding; K29.70 Gastritis, unspecified, without bleeding; K20.90 Esophagitis, unspecified without bleeding; Z86.010 Personal history of colon polyps; K62.1 Rectal polyp; D12.4 Benign neoplasm of descending colon
CPT/HCPCS: 43251; 45380; 45385; 43239; 88305; J2001

== ENCOUNTER 2021-03-04 18:28 | Outpatient (REF) | payer MEDICAID, SELFPAY ==
[2021-03-07 17:35] LABS: Calprotectin 44.8 mcg/g
== END 2021-03-04 18:29 | disposition home or self-care (01) ==
LOC: LBN 18:28
PROVIDERS: PCP Nurse Practitioner Adult Health; Visit Provider Naturopath
DX: R77.8 Other specified abnormalities of plasma proteins (principal); R19.7 Diarrhea, unspecified
CPT/HCPCS: 83630; 83993

== ENCOUNTER 2021-04-30 02:41 | Outpatient (CLI) | payer MEDICAID, SELFPAY ==
[2021-04-30 12:46] LABS: Lithium < 0.2 mmol/l (0.6-1.2)
== END 2021-04-30 02:42 | disposition home or self-care (01) ==
LOC: LBO 02:41
PROVIDERS: PCP Nurse Practitioner Adult Health; Visit Provider Nurse Practitioner Family
DX: F31.81 Bipolar II disorder (principal); F41.9 Anxiety disorder, unspecified; F10.29 Alcohol dependence with unspecified alcohol-induced disorder; Z51.81 Encounter for therapeutic drug level monitoring
CPT/HCPCS: 36415; 80178

== ENCOUNTER 2021-05-06 03:52 | Outpatient (CLI) | payer MEDICAID, SELFPAY ==
[2021-05-06 14:57] LABS: ALT 43 U/L (16-63); AST 18 U/L (15-37); Alkaline Phosphatase 76 U/L (46-116); Anion Gap 10.8 mmol/L (3-11); BUN 19 mg/dL (7-18); Bilirubin, Total 0.4 mg/dL (0.2-1.0); CO2 23.2 mmol/L (21.0-32.0); CREATININE 0.8 mg/dL (0.70-1.30); Calcium 8.9 mg/dL (8.5-10.1); Calculated LDL 156 mg/dL (<100); Chloride 106 mmol/L (98-107); Cholesterol 230 mg/dL (<200); Ferritin 422 ng/mL (26-388); Glucose 120 mg/dL (74-106); HDL Cholesterol 51 mg/dL (40-60); Potassium 4.3 mmol/L (3.5-5.1); Sodium 140 mmol/L (136-145); Total Protein 7.1 g/dL (6.4-8.2); Triglyceride 116 mg/dL (<150)
[2021-05-08 05:00] LABS: Vitamin D 25 Total 61.5 ng/mL (30-100)
== END 2021-05-06 03:53 | disposition home or self-care (01) ==
LOC: LBO 03:52
PROVIDERS: PCP Nurse Practitioner Adult Health; Visit Provider Naturopath
DX: E78.5 Hyperlipidemia, unspecified (principal); E55.9 Vitamin D deficiency, unspecified; R77.8 Other specified abnormalities of plasma proteins
CPT/HCPCS: 36415; 80053; 80061; 82306; 82728

== ENCOUNTER 2021-05-22 02:09 | Outpatient (CLI) | payer MEDICAID, SELFPAY ==
[2021-05-22 11:35] LABS: Lithium 0.6 mmol/l (0.6-1.2)
== END 2021-05-22 02:10 | disposition home or self-care (01) ==
LOC: LBO 02:09
PROVIDERS: PCP Nurse Practitioner Adult Health; Visit Provider Nurse Practitioner Family
DX: F31.81 Bipolar II disorder (principal); F41.9 Anxiety disorder, unspecified; F10.29 Alcohol dependence with unspecified alcohol-induced disorder; Z51.81 Encounter for therapeutic drug level monitoring
CPT/HCPCS: 36415; 80178

== ENCOUNTER 2021-09-12 03:49 | Outpatient (CLI) | payer MEDICAID, SELFPAY ==
[2021-09-12 12:40] LABS: Abs Immature Grans 0.04 10^3/uL (0.0-0.06); Absolute Basophil Count 0.04 10^3/uL (0.0-0.2); Absolute Eosinophil Count 0.26 10^3/uL (0.0-0.7); Absolute Lymphocyte Count 1.62 10^3/uL (1.2-3.4); Absolute Monocyte Count 0.43 10^3/uL (0.1-0.8); Absolute Neutrophil Count 3.88 10^3/uL (1.2-6.7); Basophils % 0.6; Eosinophils % 4.1; HCT 44.7 % (40.0-50.0); HGB 14.5 g/dL (13.5-17.5); Immature Grans % 0.6; Lymphocytes % 25.8; MCH 29.7 pg (27.0-33.0); MCHC 32.4 % (32.0-36.0); MCV 91.6 fL (80-95); MPV 9.2 fL (8.0-11.0); Monocytes % 6.9; Nucleated RBC 0 %; Platelet Count 239 10^3/uL (130-400); RBC 4.88 10^6/uL (4.36-5.78); RDW 13.7 % (11.8-14.1); RDW-SD 46.8 fL; WBC 6.27 10^3/uL (4.4-10.8)
[2021-09-12 13:06] LABS: Hemoglobin A1C 5.4 % (<5.7)
[2021-09-12 13:53] LABS: Lithium 0.4 mmol/l (0.6-1.2)
[2021-09-12 14:19] LABS: ALT 46 U/L (16-63); AST 20 U/L (15-37); Albumin 4.4 g/dL (3.4-5.0); Alkaline Phosphatase 84 U/L (46-116); Anion Gap 8.5 mmol/L (3-11); BUN 10 mg/dL (7-18); Bilirubin, Total 0.6 mg/dL (0.2-1.0); CO2 25.5 mmol/L (21.0-32.0); CREATININE 0.9 mg/dL (0.70-1.30); Calcium 9.5 mg/dL (8.5-10.1); Calculated LDL 157 mg/dL (<100); Chloride 103 mmol/L (98-107); Cholesterol 273 mg/dL (<200); Glucose 113 mg/dL (74-106); HDL Cholesterol 55 mg/dL (40-60); Magnesium 2.4 mg/dL (1.8-2.4); Potassium 4.4 mmol/L (3.5-5.1); Sodium 137 mmol/L (136-145); TSH 0.84 uIU/mL (0.36-3.74); Total Protein 7.7 g/dL (6.4-8.2); Triglyceride 308 mg/dL (<150); Vitamin B12 869 pg/mL (193-986)
[2021-09-12 14:20] LABS: Folate > 20.0 ng/mL (8.6-20.0)
[2021-09-12 14:36] LABS: C-Reactive Protein 0.07 mg/dL (0.0-0.3); FREE T4 1.21 ng/dL (0.76-1.46)
[2021-09-12 22:14] LABS: T3,Free 3.6 pg/mL (2.8-5.3)
[2021-09-12 23:04] LABS: Ferritin 519 ng/mL (22-322)
[2021-09-15 06:39] LABS: Vitamin D 25 Total 63.1 ng/mL (30-100)
[2021-09-15 09:23] LABS: Homocysteine 9.3 umol/L (5.0-13.9)
[2021-09-15 11:16] LABS: Syphilis Serology (RPR) Negative (Negative)
[2021-09-15 11:20] LABS: Hepatitis C Ab w Rflx HCV PCR Negative (Negative)
[2021-09-15 12:12] LABS: HIV-1/2 Ag & Ab Screen Negative (Negative)
== END 2021-09-12 03:50 | disposition home or self-care (01) ==
LOC: LBO 03:49
PROVIDERS: Naturopath; PCP Nurse Practitioner Adult Health; Visit Provider Psychiatry & Neurology Psychiatry
DX: Z11.3 Encounter for screening for infections with a predominantly sexual mode of transmission (principal); Z11.4 Encounter for screening for human immunodeficiency virus [HIV]; F31.81 Bipolar II disorder; E78.5 Hyperlipidemia, unspecified; R73.9 Hyperglycemia, unspecified; Z11.59 Encounter for screening for other viral diseases
CPT/HCPCS: 36415; 80053; 80061; 82306; 83090; 86803; 87389; 80178; 82607; 82728; 82746; 83036; 83735; 84439; 84443; 84481; 85025; 86140; 86592

== ENCOUNTER 2021-12-12 02:10 | Outpatient (CLI) | payer MEDICAID, SELFPAY ==
[2021-12-12 11:39] LABS: HCT 45.7 % (40.0-50.0)
[2021-12-12 11:42] LABS: Bilirubin Negative (Negative); Blood Trace-intact (Negative); Clarity Clear (Clear); Glucose Negative (Negative); Ketones Negative (Negative); Leukocyte Esterase Trace (Negative); Nitrite Negative (Negative); Specific Gravity 1.025 (1.005-1.025); Urobilinogen 0.2 EU/dL (Up TO 0.2)
[2021-12-12 11:51] LABS: RBC 0-2 HPF (0-2)
[2021-12-12 11:52] LABS: Bacteria Rare HPF (Negative); C & S Indicated? No; Casts Negative LPF (Negative); Crystals Negative HPF (Negative); Epithelial Cells Rare HPF (Negative); Mucus Heavy (Negative)
[2021-12-12 12:21] LABS: Calcium 8.9 mg/dL (8.5-10.1); Glucose 109 mg/dL (74-106); Potassium 4.4 mmol/L (3.5-5.1); Sodium 141 mmol/L (136-145)
[2021-12-15 06:13] LABS: Vitamin D 25 Total 55.6 ng/mL (30-100)
[2021-12-16 22:57] LABS: Thiamine (Vitamin B1), WB 225 nmol/L (70-180)
== END 2021-12-12 02:11 | disposition home or self-care (01) ==
PROVIDERS: PCP Nurse Practitioner Adult Health; Visit Provider Naturopath
DX: I10 Essential (primary) hypertension (principal); F10.20 Alcohol dependence, uncomplicated; E55.9 Vitamin D deficiency, unspecified; R77.8 Other specified abnormalities of plasma proteins
CPT/HCPCS: 36415; 82306; 82947; 81003; 81015; 82310; 84132; 84295; 84425; 85014; 85018

== ENCOUNTER 2021-12-15 12:11 | Outpatient (CLI) | payer MEDICAID, SELFPAY ==
[2021-12-15 14:42] LABS: Abs Immature Grans 0.04 10^3/uL (0.0-0.06); Absolute Basophil Count 0.07 10^3/uL (0.0-0.2); Absolute Eosinophil Count 0.34 10^3/uL (0.0-0.7); Absolute Lymphocyte Count 1.79 10^3/uL (1.2-3.4); Absolute Monocyte Count 0.41 10^3/uL (0.1-0.8); Eosinophils % 4.8; HCT 45.5 % (40.0-50.0); HGB 14.6 g/dL (13.5-17.5); Immature Grans % 0.6; MCH 29.5 pg (27.0-33.0); MCHC 32.1 % (32.0-36.0); MCV 92 fL (80-95); MPV 9.5 fL (8.0-11.0); Monocytes % 5.7; Neutrophils % 62.9; Platelet Count 244 10^3/uL (130-400); RBC 4.95 10^6/uL (4.36-5.78); RDW 13.2 % (11.8-14.1); RDW-SD 45.1 fL; WBC 7.15 10^3/uL (4.4-10.8)
[2021-12-15 16:09] LABS: Hemoglobin A1C 5.4 % (<5.7)
[2021-12-15 16:50] LABS: ALT 47 U/L (16-63); AST 20 U/L (15-37); Albumin 4.2 g/dL (3.4-5.0); Alkaline Phosphatase 86 U/L (46-116); Anion Gap 9.1 mmol/L (3-11); BUN 17 mg/dL (7-18); Bilirubin, Total 0.6 mg/dL (0.2-1.0); CO2 25.9 mmol/L (21.0-32.0); CREATININE 0.9 mg/dL (0.70-1.30); Calcium 9.1 mg/dL (8.5-10.1); Calculated LDL 167 mg/dL (<100); Chloride 105 mmol/L (98-107); Cholesterol 262 mg/dL (<200); Ferritin 543 ng/mL (26-388); Folate 13.6 ng/mL (8.6-20.0); Glucose 115 mg/dL (74-106); HDL Cholesterol 60 mg/dL (40-60); Magnesium 2.1 mg/dL (1.8-2.4); Potassium 4.2 mmol/L (3.5-5.1); Sodium 140 mmol/L (136-145); TSH 0.55 uIU/mL (0.36-3.74); Total Protein 7.3 g/dL (6.4-8.2); Triglyceride 176 mg/dL (<150); Vitamin B12 672 pg/mL (193-986)
[2021-12-15 17:10] LABS: Vitamin D 25 Total 54.1 ng/mL (30-100)
[2021-12-15 17:15] LABS: Lithium 0.6 mmol/l (0.6-1.2)
[2021-12-15 17:42] LABS: C-Reactive Protein 0.09 mg/dL (0.0-0.3)
[2021-12-15 22:20] LABS: T3,Free 3.5 pg/mL (2.8-5.3)
[2021-12-16 12:19] LABS: Zinc, Serum 0.97 mcg/mL (0.66-1.10)
[2021-12-17 10:39] LABS: Homocysteine 10.4 umol/L (5.0-13.9)
== END 2021-12-15 12:12 | disposition home or self-care (01) ==
LOC: LBO 12:13
PROVIDERS: PCP Nurse Practitioner Adult Health; Visit Provider Psychiatry & Neurology Psychiatry
DX: F31.81 Bipolar II disorder (principal); Z79.899 Other long term (current) drug therapy; Z51.81 Encounter for therapeutic drug level monitoring
CPT/HCPCS: 36415; 80053; 80061; 82306; 83090; 80178; 82607; 82728; 82746; 83036; 83735; 84439; 84443; 84481; 84630; 85025; 86140

== ENCOUNTER → 2021-12-26 00:19 | Outpatient (CLI) | payer MEDICAID, SELFPAY ==
--- NOTE | 2021-12-26 | DI.US_ITS ---
Exam(s) US CAROTID EXAM: US CAROTID CLINICAL HISTORY: CAROTID BRUIT R09.89. TECHNIQUE: Ultrasound carotids performed using grayscale, color-flow, and spectral Doppler imaging. COMPARISON: No exams were available for comparison FINDINGS: RIGHT CAROTID ARTERY: Plaque: None. Velocity elevation: None. LEFT CAROTID ARTERY: Plaque: Minimal plaque in the carotid bulb. Velocity elevation: None. VERTEBRAL ARTERIES: Antegrade flow. Measurements: R Bulb: 45.6cm/s PS / 10.9cm/s ED R CCA: 71.3cm/s PS / 14.1cm/s ED R ECA: 72.6cm/s PS / 15.4cm/s ED R ICA Prox: 68.1cm/s PS /16.1cm/s ED R ICA Mid: 77.8cm/s PS / 16.1cm/s ED R ICA Distal: 72.6cm/s PS /30.2cm/s ED R Vert: 52.7cm/s PS / 16.7cm/s ED R SVR: 1.09 R DVR: 1.14 L Bulb: 59.8cm/s PS /19.3cm/s ED L CCA: 82.3cm/s PS / 20.6cm/s ED L ECA: 72cm/s PS /19.3cm/s ED L ICA Prox:53.3cm/s PS / 17.4cm/s ED L ICA Mid: 46.9cm/sPS / 14.8cm/s ED L ICA Distal: 80.3cm/s PS / 37.9cm/s ED L Vert: 38.6cm/s PS / 14.1cm/s ED L SVR: 0.98 L DVR: 1.84 IMPRESSION: No evidence for hemodynamically significant carotid stenosis. Criteria for Carotid Stenosis: Normal: ICA PSV <125 cm/s no plaque or intimal thickening is visible. <50% stenosis: ICA PSV <125 cm/s and plaque or intimal thickening is visible. 50-69% stenosis: ICA PSV is 125-250 cm/s and plaque is visible. >70% stenosis to near occlusion: ICA PSV >250 cm/s with visible plaque and luminal narrowing. DATA REPOSITORY:
--- NOTE | 2021-12-26 | DI.US_ITS ---
Exam(s) US ABDOMEN LIMITED EXAM: US ABDOMEN LIMITED CLINICAL HISTORY: SERUM FERRITIN HIGH ABNL PLASMA PROTEINS R77.8 TECHNIQUE: Ultrasound abdomen performed using standard protocol. COMPARISON: No exams were available for comparison FINDINGS: PANCREAS: Normal where visualized. LIVER: There is diffuse increased echogenicity of the liver. Hepatopedal flow in the Portal Vein. Th e liver measures in 21.4 cm length. GALLBLADDER: No evidence of cholelithiasis. No evidence of wall thickening. No pericholecystic fluid identified. BILIARY SYSTEM: Common bile duct measures < 7 mm. No intrahepatic biliary ductal dilation. ARREDONDO'S SIGN: Negative. RIGHT KIDNEY: Kidney is normal in size. No evidence of renal calculi. No evidence of hydronephrosis. No renal mass or cyst identified. ASCITES: None seen. IMPRESSION: 1. Diffuse increased echogenicity of the liver. MRI of the liver should be considered for further ev aluation for hemochromatosis. 2. Hepatomegaly. DATA REPOSITORY:
== END ==
PROVIDERS: PCP Nurse Practitioner Adult Health; Visit Provider Naturopath
DX: R09.89 Other specified symptoms and signs involving the circulatory and respiratory systems (principal); R77.8 Other specified abnormalities of plasma proteins; R16.0 Hepatomegaly, not elsewhere classified
CPT/HCPCS: 76705; 93880

== ENCOUNTER 2022-01-05 16:05 | Outpatient (REF) | payer MEDICAID, SELFPAY ==
[2022-01-05 19:13] LABS: Bilirubin Negative (Negative); Blood Negative (Negative); Clarity Clear (Clear); Glucose Negative (Negative); Ketones Negative (Negative); Leukocyte Esterase Trace (Negative); Nitrite Negative (Negative); Urobilinogen 0.2 EU/dL (Up TO 0.2)
[2022-01-05 19:20] LABS: Bacteria Rare HPF (Negative); C & S Indicated? No; Crystals Negative HPF (Negative); Epithelial Cells Rare HPF (Negative); Mucus Moderate (Negative); RBC 0-2 HPF (0-2)
== END 2022-01-05 16:06 | disposition home or self-care (01) ==
LOC: LBN 16:05
PROVIDERS: PCP Nurse Practitioner Adult Health; Visit Provider Nurse Practitioner Adult Health
DX: R31.9 Hematuria, unspecified (principal); R80.9 Proteinuria, unspecified
CPT/HCPCS: 81003; 81015

== ENCOUNTER 2022-01-08 04:20 | Outpatient (CLI) | payer MEDICAID, SELFPAY ==
[2022-01-09 09:50] LABS: HIV-1/2 Ag & Ab Screen Negative (Negative)
== END 2022-01-08 04:21 | disposition home or self-care (01) ==
LOC: LBO 04:21
PROVIDERS: PCP Nurse Practitioner Adult Health; Visit Provider Nurse Practitioner Adult Health
DX: Z11.4 Encounter for screening for human immunodeficiency virus [HIV] (principal)
CPT/HCPCS: 36415; 87389

== ENCOUNTER 2022-01-14 02:17 | Outpatient (CLI) | payer MEDICAID, SELFPAY ==
[2022-01-22 23:17] LABS: Result Summary NEGATIVE; Specimen WB Whole Blood
== END 2022-01-14 02:18 | disposition home or self-care (01) ==
LOC: LBO 02:17
PROVIDERS: PCP Nurse Practitioner Adult Health; Visit Provider Naturopath
DX: R77.8 Other specified abnormalities of plasma proteins (principal); R79.89 Other specified abnormal findings of blood chemistry
CPT/HCPCS: 36415; 81256

== ENCOUNTER 2022-01-25 16:52 | Emergency (ER) | payer MEDICAID, SELFPAY ==
[2022-01-25] VITALS (11 sets, daily range): BP systolic 126–132; BP diastolic 79–80; PULSE 46–64; RESP 17–18; TEMP 36.6; O2SAT 97–99
--- NOTE | 2022-01-25 17:15 | RT.EKG_ITS ---
APPROVED REPORT Exam: Resting ECG Reason for Exam: dizziness Patient Location: E HR:54 bpm ECG Measurements Heart Rate 54 AXIS WA 191 P 49 QRSd 114 QRS 14 QT 405 T 38 QTc 384 Conclusion Sinus bradycardia...rate< 60 Incomplete left bundle branch block...QRSd>110mS, terminal axis(-90,-1)
--- NOTE | 2022-01-25 17:30 | DI.RAD_ITS ---
Exam(s) XR PORTABLE CHEST AP EXAM: XR PORTABLE CHEST AP CLINICAL HISTORY: PUI, Arrythmia. TECHNIQUE: 2D digital imaging was performed. COMPARISON: CR CHEST 2 VIEWS PA,LAT from 02/18/2015 FINDINGS: Single AP portable view. Heart size is upper normal. The mediastinum is not widened. Lungs are clear. No infiltrates nor obvious pleural effusions. IMPRESSION: No acute pulmonary findings on this single AP portable view of the chest. No significant change compared to January 2015. DATA REPOSITORY: RADIATION DOSE DELIVERED: All CT scans at this facility use at least one of these dose optimization techniques: automated exposure control; mA and/or kV adjustment per patient size (includes targeted e xams where dose is matched to clinical indication); or iterative reconstruction.
--- NOTE | 2022-01-25 17:47 | ED.GENADUL_ITS ---
Discharge Plan Disposition Patient Disposition: HOME Condition: Stable Discharge Details Clinical Impression: Bradycardia, Incomplete left bundle branch block (LBBB) Primary Care Provider: Kathrin Rosas ED Provider: Marcella Taylor Home Meds and New Rx's Prescriptions: Continued vitamin B complex Capsule 1 cap PO DAILY Fish Oil 900 mg-360 mg- 455 mg-1,000 mg capsule 2 cap PO DAILY magnesium oxide 500 mg tablet 1,000 mg PO DAILY omeprazole 20 mg capsule,delayed release(DR/EC) 20 mg PO DAILY Qty: 90 3RF Rx Instructions: Or as directed for barretts esophagus. aspirin 81 mg tablet,delayed release (DR/EC) 81 mg PO DAILY Label Comments: Prevention--CRC & CVA/IA venlafaxine 150 mg tablet extended release 24hr 150 mg PO QHS Label Comments: takes with 50mg tab at hs lithium carbonate 300 mg tablet 900 mg PO HS Label Comments: 10/17/18 cgc Rx Instructions: [facility] BECCA BUTCHERLANDRY No Action biotin 10,000 mcg capsule 10,000 mcg PO DAILY NAC 600 mg tablet 600 mg PO TID lipotropic complex PO TID tamsulosin [Flomax] 0.4 mg capsule 0.4 mg PO DAILY Qty: 90 0RF trazodone 50 mg tablet 100 mg PO PRN Rx Instructions: per pt allowed to take 1-2 tabs prn sildenafil [Viagra] 100 mg tablet 50 - 100 mg PO DAILY PRN (Reason: sexual activity) Qty: 20 0RF Rx Instructions: administer 30 minutes to 4 hours before activity lithium carbonate 450 mg tablet extended release 450 tab PO QAM Label Comments: TAKE ONE TABLET BY MOUTH EVERY MORNING AND 2 AT BEDTIME saw palmetto 450 mg Capsule 900 mg PO BID acetylcysteine [NAC] 600 mg Capsule 600 mg PO TID thiamine HCl (vitamin B1) 100 mg Tablet 150 mg PO DAILY cholecalciferol (vitamin D3) 125 mcg (5,000 unit) capsule 5,000 unit PO DAILY Discharge Instructions Instructions: Bradycardia (ED) Additional Instructions: You should be contacted for placement of a Holter monitor. Your lithium level 0.5, normal is 0.6-1.2. At this time there is no evidence for heart attack however you do have a left bundle branch block on the EKG. I do recommend follow-up with your PCP and possible cardiology referral. Follow up with primary care provider in 3-5 days. Return to ED sooner if any worsening or concerns. Increase oral fluids. Referrals: Kathrin Rosas HOSPITALITY RECRUITER [Primary Care Provider] - 5 days Discharge Orders Other Ambulatory Orders: Holter Monitor (Routine) Timeframe: 3 Days Facility: [facility] - Location: Respiratory Therapy Ordered By: Marcella Taylor Medical Decision Making 61-year-old male presents to the ER with a chief complaint of increased fatigue dizziness for the last 2 weeks. He reports he has not been sleeping well for the last 5 to 6 days. He does have a past medical history of alcohol abuse he has been sober for the last month he recently stopped his gabapentin 10 days ago after a taper, he has been taking naltrexone x2-week 50 mg daily. He also stopped amlodipine on January 22. He denies any nausea vomiting diarrhea denies any hematochezia or melena emesis. He reports that he is been told he has bradycardia approximately 6 to 7 years ago. Upon initial presentation he is EKG does show bradycardia with a left bundle branch block no old EKG available for review. He is also concerned for possible COVID. He denies any shortness of breath cough fever. CBC within normal limits, CMP also largely within normal limits lithium level slightly low at 0.5 negative COVID. EKG shows left bundle branch block and incomplete. No old EKG available for review. Troponin less than 50 proBNP 27. Intermittent dizziness, differential diagnosis includes due to bradycardia, orthostatic hypotension, CAD, M?ni?re's, benign positional vertigo, electrolyte imbalance Discussed lab results and plan of care with patient. Holter monitor ordered for 48 hours and discussed cardiology referral versus follow-up with PCP patient would prefer to follow-up with PCP at this time. I do feel this is reasonable. He denies any chest pain. This text was generated using Fitocracyation system, please disregard any oddities of phrase or misspellings. Medical Records Medical records reviewed: Yes I reviewed the patient's medical records. Lab Data Lab results reviewed: Yes I reviewed the patient's lab results. Labs: Laboratory Tests Range/Units 01/25/22 01/25/22 01/25/22 17:55 17:55 17:55 WBC (4.4-10.8) 10^3/uL RBC (4.36-5.78) 10^6/uL Hgb (13.5-17.5) g/dL Hct (40.0-50.0) % MCV (80-95) fL MCH (27.0-33.0) pg MCHC (32.0-36.0) % RDW (11.8-14.1) % Plt Count (130-400) 10^3/uL MPV (8.0-11.0) fL Immature Gran % Neutrophils % Lymphocytes % Monocytes % Eosinophils % Basophils % Nucleated RBC % (0.0-0.3) % Absolute Neutrophils (1.2-6.7) 10^3/uL Absolute Lymphocytes (1.2-3.4) 10^3/uL Absolute Monocytes (0.1-0.8) 10^3/uL Absolute Eosinophils (0.0-0.7) 10^3/uL Absolute Basophils (0.0-0.2) 10^3/uL Sodium (136-145) mmol/L 138 Potassium (3.5-5.1) mmol/L 3.9 Chloride (98-107) mmol/L 105 Carbon Dioxide (21.0-32.0) mmol/L 24.6 Anion Gap (3-11) mmol/L 8.4 BUN (7-18) mg/dL 18 Creatinine (0.70-1.30) mg/dL 0.9 Estimated GFR/1.73 m2 (mL/min/1.73m2) >= 60.00 Glucose (74-106) mg/dL 106 Calcium (8.5-10.1) mg/dL 9.0 Magnesium (1.8-2.4) mg/dL 2.4 Total Bilirubin (0.2-1.0) mg/dL 0.3 AST (15-37) U/L 9 L ALT (16-63) U/L 34 Alkaline Phosphatase (46-116) U/L 77 Troponin I (<or=60) ng/L < 50 NT-Pro-B Natriuret Pep (<300) pg/mL 27 Total Protein (6.4-8.2) g/dL 7.4 Albumin (3.4-5.0) g/dL 4.0 [place] (0.6-1.2) mmol/l COVID-19 Source Nasal/Nares SARS-CoV-2 (PCR) (Negative) Negative Range/Units 01/25/22 01/25/22 01/25/22 17:55 18:26 20:43 WBC (4.4-10.8) 10^3/uL 8.02 RBC (4.36-5.78) 10^6/uL 4.77 Hgb (13.5-17.5) g/dL 13.8 Hct (40.0-50.0) % 42.7 MCV (80-95) fL 90 MCH (27.0-33.0) pg 28.9 MCHC (32.0-36.0) % 32.3 RDW (11.8-14.1) % 12.9 Plt Count (130-400) 10^3/uL 263 MPV (8.0-11.0) fL 9.8 Immature Gran % 0.4 Neutrophils % 63.9 Lymphocytes % 24.1 Monocytes % 6.7 Eosinophils % 4.4 Basophils % 0.5 Nucleated RBC % (0.0-0.3) % 0.0 Absolute Neutrophils (1.2-6.7) 10^3/uL 5.13 Absolute Lymphocytes (1.2-3.4) 10^3/uL 1.93 Absolute Monocytes (0.1-0.8) 10^3/uL 0.54 Absolute Eosinophils (0.0-0.7) 10^3/uL 0.35 Absolute Basophils (0.0-0.2) 10^3/uL 0.04 Sodium (136-145) mmol/L Potassium (3.5-5.1) mmol/L Chloride (98-107) mmol/L Carbon Dioxide (21.0-32.0) mmol/L Anion Gap (3-11) mmol/L BUN (7-18) mg/dL Creatinine (0.70-1.30) mg/dL Estimated GFR/1.73 m2 (mL/min/1.73m2) Glucose (74-106) mg/dL Calcium (8.5-10.1) mg/dL Magnesium (1.8-2.4) mg/dL Total Bilirubin (0.2-1.0) mg/dL AST (15-37) U/L ALT (16-63) U/L Alkaline Phosphatase (46-116) U/L Troponin I (<or=60) ng/L Cancelled NT-Pro-B Natriuret Pep (<300) pg/mL Total Protein (6.4-8.2) g/dL Albumin (3.4-5.0) g/dL [place] (0.6-1.2) mmol/l 0.5 L COVID-19 Source SARS-CoV-2 (PCR) (Negative) HPI General Mode of arrival: wheelchair . Date/Time Provider Initiated Documentation: 01/25/22 17:42 . Limitations to Documentation: no limitations . Information obtained by: patient, RN notes reviewed and old records reviewed . HPI Narrative: 61-year-old male presents to the ER with a chief complaint of increased fatigue dizziness for the last 2 weeks. He reports he has not been sleeping well for the last 5 to 6 days. He does have a past medical history of alcohol abuse he has been sober for the last month he recently stopped his gabapentin 10 days ago after a taper, he has been taking naltrexone x2-week 50 mg daily. He also stopped amlodipine on January 22. He denies any nausea vomiting diarrhea denies a ny hematochezia or melena emesis. He reports that he is been told he has bradycardia approximately 6 to 7 years ago. Upon initial presentation he is EKG does show bradycardia with a left bundle branch block no old EKG available for review. He is also concerned for possible COVID. He denies any shortness of breath cough fever. Past medical history includes obstructive sleep apnea, vertigo, bradycardia, elevated bilirubin, bipolar disorder, Sanchez's esophagus presents, alcohol use disorder, BPH, hypertension, high cholesterol. Related Data Home Medications Medication Instructions Recorded Confirmed lithium carbonate 300 mg tablet 900 mg PO HS 10/17/18 01/25/22 biotin 10,000 mcg capsule 10,000 mcg PO DAILY 10/06/19 01/25/22 aspirin 81 mg tablet,delayed 81 mg PO DAILY 12/15/19 01/25/22 release venlafaxine 150 mg tablet,extended 150 mg PO QHS 04/15/20 01/25/22 release 24 hr trazodone 50 mg tablet 100 mg PO PRN 08/16/20 01/25/22 cholecalciferol (vitamin D3) 125 5,000 unit PO DAILY 02/14/21 01/25/22 mcg (5,000 unit) capsule sildenafil 100 mg tablet (Viagra) 50 - 100 mg PO DAILY PRN sexual 09/25/21 01/05/22 activity #20 tabs acetylcysteine 600 mg tablet (NAC) 600 mg PO TID 01/05/22 01/25/22 lipotropic complex PO TID 01/05/22 01/05/22 magnesium oxide 500 mg tablet 1,000 mg PO DAILY 01/05/22 01/25/22 omega-3 900 mg-dha 360 mg-epa 455 2 cap PO DAILY 01/05/22 01/25/22 mg-fish oil 1,000 mg capsule (Fish Oil) omeprazole 20 mg capsule,delayed 20 mg PO DAILY #90 caps 01/05/22 01/25/22 release vitamin B complex 1 cap PO DAILY 01/05/22 01/25/22 tamsulosin 0.4 mg capsule (Flomax) 0.4 mg PO DAILY #90 caps 01/15/22 01/25/22 acetylcysteine 600 mg capsule (NAC) 600 mg PO TID 01/25/22 01/25/22 lithium carbonate 450 mg 450 tab PO QAM 01/25/22 01/25/22 tablet,extended release saw palmetto 450 mg capsule 900 mg PO BID 01/25/22 01/25/22 thiamine HCl (vitamin B1) 100 mg 150 mg PO DAILY 01/25/22 01/25/22 tablet Previous Rx's Medication Instructions Recorded sildenafil 100 mg tablet (Viagra) 50 - 100 mg PO DAILY PRN sexual 09/25/21 activity #20 tabs omeprazole 20 mg capsule,delayed 20 mg PO DAILY #90 caps 01/05/22 release tamsulosin 0.4 mg capsule (Flomax) 0.4 mg PO DAILY #90 caps 01/15/22 Allergies Allergy/AdvReac Type Severity Reaction Status Date / Time No Known Allergies Allergy Verified 01/25/22 17:17 General Stated Complaint: Dizzy/Sync HUBER: 2 Review of Systems All systems reviewed & are unremarkable except as noted in HPI and below Constitutional Constitutional: Reports fatigue ENT Ears, Nose, Mouth, and Throat: Reports dizziness Cardiovascular Cardiovascular: Denies chest pain, Denies diaphoresis, Denies syncope, Reports lightheadedness, Denies radiating jaw, neck or arm pain and Denies dyspnea Respiratory Respiratory: Denies cough, Denies hemoptysis and Denies dyspnea Gastrointestinal Gastrointestinal: Denies abdominal pain, Denies diarrhea, Denies nausea and Denies vomiting Neurologic Neurologic: Denies abnormal speech, Denies confusion, Reports dizziness, Denies syncope and Denies localized weakness Psychiatric Psychiatric: Denies confusion Endocrine Endocrine: Reports fatigue PFSH All Active Problems (Updated 01/25/22 @ 19:56 by Marcella Taylor NP) Bradycardia (Acute) Incomplete left bundle branch block (LBBB) (Acute) Elevated ferritin (Acute ~11/2021) Abnormal liver ultrasound (Acute ~11/2021) Hepatomegaly (Acute ~11/2021) BPH loc w urin obs/LUTS (Chronic) Essential (primary) hypertension (Chronic) Dx'ed 07/2020; started on Amlodipine (Lisinopril interacted with [place]) Hypertriglyceridemia (Acute) Increased BMI (Chronic 05/03/12) Tubular adenoma of colon (Chronic 12/21/17) 2018 & 02/2021 Obstructive sleep apnea (Chronic 10/19/15) Tx: Mouth guard & weight loss severe AHI 44.4 CPAP Enedelia Degre,[employer]OCIATE Erectile dysfunction (Chronic 01/01/16) Effexor Esophageal reflux (Chronic 05/03/12) Long-term Omeprazole Bipolar disorder (Chronic 05/03/12) NKHS Barretts esophagus (Chronic 03/21/15) endoscopy 03/11/15 Gabriella, 09/28/17 & 02/2021 with Chirag Alcohol use disorder (Chronic 05/03/12) Medical History (Updated 01/25/22 @ 19:56 by Marcella Taylor NP) Bradycardia (02/15/15) Cerumen impaction Hx wax removal needed, lodged in today (01/12/20). PLan to use debrox x2-3 days before returning. Seeing ENT next month (January 2020). COVID-19 Dx'ed State of [place] (see scanned docs) 11/23/2020 History of vertigo EPisodes of sensation of room spinning .. has resolved on its own, but happens out of nowhere it seems ASIA (obstructive sleep apnea) Rupture of right long head biceps tendon SARS-CoV-2 positive (11/24/20) pt reported, has had both imms. cgc Stapedial myoclonus Tinnitus, left Total bilirubin, elevated Surgical History Abnormal colonoscopy (~02/2021) TAs x2 Colonoscopy - MAC (12/21/17) EGD - MAC (09/28/17) EGD w/ Bx (03/11/15) Excision, Lesion (09/28/17) right shoulder skin tag H/O esophagogastroduodenoscopy (~02/2021) Barretts Family History Mother , age 85 Alzheimer disease Diabetes Depression Father , 88yo HF Essential hypertension Bladder cancer COPD (chronic obstructive pulmonary disease) Heart disease IA, CABG Neuropathy Other Multiple polyps of sigmoid colon Social History Smoking/Tobacco Use Status: Former Tobacco Use Tobacco: How many years used: 15 Second Hand Exposure: Yes Smoking risk assessment performed?: Yes Alcohol Intake: current Alcohol Intake frequency: a few times a week Counseling given: No Drug use: Occasionally Substance use type: marijuana Adopted: No Caregiver/Support person: No Foster care: No Household members: none Housing: apartment Number of Children: 2 Communication Needs: None Education Level: college Details: Associate Business Do you need help understanding health information?: Never current occupation: Caregiver Sexually active: No Do you think of yourself as: straight/heterosexual Current gender identity: male What is your relationship status?: How often do you talk on the phone with friends or family?: three or more times per week How often do you get together with friends or relatives?: three or more times per week How often do you attend congregational or sabianism services?: 4 or more times per year Do you belong to any clubs or organized social groups?: no Panel score (0-1 are the most socially isolated patients): 2 What type of physical activity do you participate in: walking Duration: 15-30 minutes/day Frequency: 3-4 times per week Ailyn/Church: [employer] Seatbelt use: always Helmet use: Yes Drive intox or ride w/intox stud driver: No Working smoke detector in home: Yes Fire extinguisher in home: Yes Carbon monox detector in home: Yes Firearms in home: No Do you feel safe at home: Yes Victim of physical abuse: No Victim of emotional abuse: No Victim of sexual abuse: No Exam Narrative Exam Narrative: Constitutional: Alert and oriented x3. Appears stated age. Normal body habitus. Head: Normocephalic, no trauma. Eyes: Pupils PERRL, Red reflex noted, EOM's intact. Eyelids symmetrical without lesions, discharge, or swelling. ENT: Bilateral TM's WNL, External ear normal to inspection, no mastoid TTP, swelling, or erythema, Nasal turbinates WNL, no nasal discharge. Normal dentition, Posterior pharynx WNL, no exudate. Chest: RRR, Normal S1, S2, distal pulses intact. Resp: Lungs clear to auscultation bilaterally, no wheezes, rales, or rhonchi. Abdomen: Soft, non-distended, Normoactive bowel sounds all 4 quads. Musculoskeletal: Normal gait, 5/5 strength to all four extremities. Skin: No suspicious rashes or lesions. Capillary refill less than 2 sec. Neurologic: Cranial nerves II-XII intact. Alert and oriented x 3. Motor: No deficits noted. Sensory: Intact bilaterally all 4 extremities. Reflexes: DTR's intact bilaterally.. Hematologic/Lymphatic: No ecchymosis, no lymphadenopathy. Course Vital Signs Vital signs: Vital Signs Temperature 36.6 C 01/25/22 17:09 Pulse 64 01/25/22 17:09 Respiratory Rate 18 01/25/22 17:09 Blood Pressure 126/79 01/25/22 17:09 Pulse Oximetry 97 01/25/22 17:09 Temperature 36.6 C 01/25/22 17:09 Temperature Source Temporal Artery Scan 01/25/22 17:09 Pulse 64 01/25/22 17:09 Respiratory Rate 17 01/25/22 17:42 Respiratory Effort Non-Labored 01/25/22 17:42 Respiratory Depth Normal 01/25/22 17:42 Respiratory Pattern Normal 01/25/22 17:42 Blood Pressure 126/79 01/25/22 17:09 Blood Pressure Position Sitting 01/25/22 17:09 Pulse Oximetry 97 01/25/22 17:09 Oxygen Delivery Method Room Air 01/25/22 17:09 Oxygen Flow Rate 0 01/25/22 17:09 Pain Level 0 01/25/22 17:09
[2022-01-25 18:02] LABS: Abs Immature Grans 0.03 10^3/uL (0.0-0.06); Absolute Basophil Count 0.04 10^3/uL (0.0-0.2); Absolute Eosinophil Count 0.35 10^3/uL (0.0-0.7); Absolute Lymphocyte Count 1.93 10^3/uL (1.2-3.4); Absolute Monocyte Count 0.54 10^3/uL (0.1-0.8); Absolute Neutrophil Count 5.13 10^3/uL (1.2-6.7); Basophils % 0.5; Eosinophils % 4.4; HCT 42.7 % (40.0-50.0); HGB 13.8 g/dL (13.5-17.5); Immature Grans % 0.4; Lymphocytes % 24.1; MCH 28.9 pg (27.0-33.0); MCHC 32.3 % (32.0-36.0); MCV 90 fL (80-95); MPV 9.8 fL (8.0-11.0); Monocytes % 6.7; Neutrophils % 63.9; Platelet Count 263 10^3/uL (130-400); RBC 4.77 10^6/uL (4.36-5.78); RDW 12.9 % (11.8-14.1); RDW-SD 42.6 fL; Source Nasal/Nares; WBC 8.02 10^3/uL (4.4-10.8)
[2022-01-25 18:27] LABS: ALT 34 U/L (16-63); AST 9 U/L (15-37); Alkaline Phosphatase 77 U/L (46-116); Anion Gap 8.4 mmol/L (3-11); BUN 18 mg/dL (7-18); Bilirubin, Total 0.3 mg/dL (0.2-1.0); CO2 24.6 mmol/L (21.0-32.0); CREATININE 0.9 mg/dL (0.70-1.30); Chloride 105 mmol/L (98-107); Glucose 106 mg/dL (74-106); Potassium 3.9 mmol/L (3.5-5.1); Sodium 138 mmol/L (136-145); Total Protein 7.4 g/dL (6.4-8.2); Troponin I < 50 ng/L (<or=60)
[2022-01-25 18:28] LABS: Magnesium 2.4 mg/dL (1.8-2.4); NT-proBNP 27 pg/mL (<300)
--- NOTE | 2022-01-25 18:32 | DI.VRAD_ITS ---
PROCEDURE INFORMATION: Exam: XR Chest Exam date and time: 01/25/2022 18:05 Age: 61 years old Clinical indication: Other: Pui arrythmia TECHNIQUE: Imaging protocol: Radiologic exam of the chest. Views: 1 view. COMPARISON: CR CHEST 2 VIEWS PA,LAT 02/18/2015 15:08 FINDINGS: Lungs: No consolidation. Pleural spaces: No pleural effusion. No pneumothorax. Heart/Mediastinum: No cardiomegaly. Bones/joints: No acute fracture. IMPRESSION: Negative portable chest. Dictated and Authenticated by: Isamar Munoz MD. Ordering:BOUCHRA Naranjo MD
[2022-01-25 18:52] LABS: COVID-19 PCR Negative (Negative)
[2022-01-25 19:37] LABS: Lithium 0.5 mmol/l (0.6-1.2)
== END 2022-01-25 20:14 | disposition home or self-care (01) ==
PROVIDERS: Emergency Provider Registered Nurse Emergency; PCP Nurse Practitioner Adult Health
DX: I44.7 Left bundle-branch block, unspecified (principal); R00.1 Bradycardia, unspecified; Z87.891 Personal history of nicotine dependence; Z20.822 Contact with and (suspected) exposure to COVID-19
CPT/HCPCS: 36415; 80053; 87635; 93005; 99284; 71045; 80178; 83735; 83880; 84484; 85025; 93010

== ENCOUNTER 2022-01-30 02:41 | Outpatient (RCR) | payer MEDICAID, SELFPAY ==
--- NOTE | 2022-01-30 10:15 | HOLTER_ITS ---
APPROVED REPORT Conclusion This is a 48-hour Holter monitor ordered for bradycardia Predominant rhythm was sinus with an average heart rate of 55. Minimum was 41, maximum 122 There were rare isolated atrial and ventricular ectopic beats There was no atrial fibrillation, no supraventricular tachycardia, no pauses greater than 3 seconds, no high-grade AV block Patient symptoms consisted of fatigue, no time specified
== END 2022-02-22 23:59 | disposition home or self-care (01) ==
LOC: RT 02:41
PROVIDERS: PCP Nurse Practitioner Adult Health; Visit Provider Nurse Practitioner Adult Health
DX: R00.1 Bradycardia, unspecified (principal); R53.83 Other fatigue
CPT/HCPCS: 93225; 93226

== ENCOUNTER → 2022-02-03 01:24 | Outpatient (CLI) | payer MEDICAID, SELFPAY ==
--- NOTE | 2022-02-03 05:45 | ETT_ITS ---
APPROVED REPORT Exam: Exercise Treadmill Patient Location: Out-Patient Room/Bed: Stress Nurse: Zaina Dempsey RN Ordering Provider:AR ORELLANA, Contact Number: [phone] BMI: 32.99 Baseline Rhythm: Sinus Bradycardia Indications: Sinus bradycardia, incomplete LBBB Medical History Medical History: Hx of hypertension, hyperlipidemia, bradycardia, incomplete LBBB, ASIA, bipolar, gerd Cardiac Medications: Aspirin, omeprazole Allergies: NKA Cardiac Risk Factors: Hx of hypertension, hyperlipidemia, family hx Previous Cardiac Procedures: None Pretest Chest Pain Characteristics: None Exercise History: Sedentary Physical Disabilities: None Lung Sounds: Clear to auscultation Heart Sounds: Regular Stress Test Details Test: Exercise stress testing was performed using a Moy protocol. Rest Stress HR Resting HR Supine: 49 bpm Max Heart Rate (APMHR): 159 bpm Resting HR Standin bpm Target HR (85% APMHR): 135 bpm Max HR Achieved: 154 bpm % of APMHR: 96 Recovery HR: 79 bpm HR response to stress: Normal HR response to stress BP Resting BP Supine: 120/84 mmHg Resting BP Standin/74 mmHg Max BP: 160/78 mmHg Recovery BP: 138/82 mmHg BP response to stress: Normal blood pressure response to stress. ECG Resting ECG: Sinus Bradycardia Ectopy: None Stress ECG: Sinus Tachycardia ST Change: No significant ST segment changes noted Arrhythmia: None Recovery ECG: Sinus Rhythm Recovery ST Change: No significant ST segment changes noted Recovery Arrhythmia: None Clinical Reason for Termination: Fatigue Stress Symptoms: General Fatigue Exercise duration: 9 min34 sec Highest Stage Reached: Stage 4: 4.2 mph at 16% grade. Exercise capacity: 11.08 METs Angina Score: None Lopez Treadmill Score: 9.4 Rate Pressure Product: 80320 Stress ECG Conclusion 1. Resting electrocardiogram was within normal limits 2. Patient exercised on the Moy protocol and completed a workload of 11.08 METS, stopping due to fa tigue 3. Normal heart rate and blood pressure response to exercise. The patient achieved 96% of predicted heart rate for age 4. There was no electrocardiographic evidence of myocardial ischemia 5. There were no significant dysrhythmias Lopez Treadmill Score is 9.4 which is Low risk. Stress Test Summary STAGE Time (mins) Speed (mph) Grade (%) HR BP SYMPTOMS METS Supine 49 120/84 Standing 63 110/74 SpO2 96% 1 3 1.7 10 103 126/84 SpO2 95% 4.6 2 6 2.5 12 121 136/88 SpO2 95% 7 3 9 3.4 14 143 158/90 SpO2 95% 10.2 4 12 4.2 16 152 SpO2 90% 12.9 1 min recovery 132 160/78 SpO2 96% 3 min recovery 86 140/80 SpO2 96% 6 min recovery 79 138/82 SpO2 96%
== END ==
PROVIDERS: PCP Nurse Practitioner Adult Health; Visit Provider Nurse Practitioner Adult Health
DX: I44.7 Left bundle-branch block, unspecified (principal); R00.1 Bradycardia, unspecified
CPT/HCPCS: 93017

== ENCOUNTER → 2022-02-17 02:57 | Outpatient (CLI) | payer MEDICAID, SELFPAY ==
--- NOTE | 2022-02-17 08:00 | DI.US_ITS ---
APPROVED REPORT EXAM: Comprehensive 2D, Doppler, and color-flow Echocardiogram Patient Location: Out-Patient Payroll Accountant: Lolita Ratliff RDCS (AE) Indications: Look for structural def in heart, baseline, Bradycardia, LBBB Other Information Study Quality: Good Conclusion Normal left ventricular wall thickness and chamber size. Estimated ejection fraction is 65%. Wall m otion is normal Normal right ventricular size and systolic function Both atria are normal in size The aortic valve is trileaflet with trace regurgitation Normal mitral valve with trace to mild regurgitation Normal tricuspid valve with trace regurgitation. Estimated right ventricular systolic pressure is 26 mmHg Mildly dilated ascending aorta measuring 3.65 cm Wall motion Left Ventricle The left ventricle is normal size. The left ventricular systolic function is normal. The left ventric ular ejection fraction is within the normal range. There is normal left ventricular wall thickness. T here is normal LV segmental wall motion. There is no ventricular septal defect visualized. LVEF is 65 %. Right Ventricle The right ventricle is normal size. The right ventricular systolic function is normal. The RVSP is 25 .8 mmHg. Atria The left atrium size is normal. The right atrium size is normal. The interatrial septum is intact wit h no evidence for an atrial septal defect. Aortic Valve The aortic valve is normal in structure. Aortic valve is trileaflet. There is no aortic valvular sten osis. Trace aortic regurgitation. Mitral Valve The mitral valve is normal in structure. No evidence of mitral valve stenosis. Trace to mild mitral r egurgitation. Tricuspid Valve The tricuspid valve is normal in structure. There is no tricuspid valve stenosis. Trace tricuspid reg urgitation. Pulmonic Valve The pulmonary valve is normal in structure. There is no pulmonic valvular stenosis. Trace pulmonic re gurgitation. Great Vessels The aortic root is normal in size. The ascending aorta is mildly dilated. Aortic arch is normal in ca liber. IVC is normal in size and collapses >50% with inspiration. Pericardium There is no pericardial effusion. 2D Dimensions IVSD d PLAX 0.94 cm M: 0.6-1.2 LV Vol A2C d MOD 139.1 mL LVPW d PLAX 0.97 cm M: 0.6 - 1.2 LV Vol A4C d MOD 121.8 mL LVID d PLAX 5.10 cm M: 4.2 - 5.8 LA vol/ BSA A2C s A-L 30.0 mL/m2 LVDs 3.40 cm M: 2.5 - 4.0 LA vol/ BSA A4C s A-L 14.6 mL/m2 Ao Root d 3.20 cm M: 3.1 - 3.7 LA Vol/ BSA Biplane s A-L 21.4 mL/m2 RA Area A4C 18.98 cm2 LA Area A4C s MOD 14.32 cm2 RA Vol/ BSA A4C s A-L 24.3 mL/m2 LA Area A2C s MOD 21.01 cm2 Ao Asc Diam d 3.65 cm M: 2.6 - 3.4 LV EF A4C MOD 65.2 % LV EF Teichholz 61.6 % LV EF A2C MOD 65.4 % LVEF (Land's) 65.28 % M: 52 - 72 LV EF Biplane MOD 65.3 % LV Volume 96.91 mL M: 62 - 150 SV 87.17 mL LV Volume Index 43.85 mL/m2 M: 34 - 74 SV Index 39.35 mL/m2 LV Vol Biplane MOD 133.5 mL FS 33.25 % M-Mode TAPSE 2.17 cm (M/F) >1.7 LV Diastology MV E' medial 0.073 (>0.07 m/s) E/A Ratio 0.8 LV E/e MED 7.45 (<14) MV E Vmax 0.55 (0.4-1.3 m/s) MV E' lateral 0.090 (>0.1 m/s) MV A Vmax 0.65 (0.4-1.3 m/s) LV E/e LAT 6.05 (<14) MV E/A Ratio 0.79 MV E/E' medial 7.47 MV E/E' lateral 6.05 Aortic Valve LVOT Area 3.43 cm2 AoV Area Vmax 3.09 cm2 LVOT Vmax 1.44 m/s AoV Area/ BSA (Vmax) 1.39 cm2/m2 LVOT Mean James. 0.85 m/s KT Mean James. 2.56 cm2 LVOT Peak Grad 8.2 mmHg KT Mean James. Index 1.16 cm2/m2 LVOT Mean Grad 3.6 mmHg AR DT 2929 msec LVOT VTI 0.267 m AR PHT 849 msec LVOT Diam s 2.05 cm AoV Vmax 1.60 m/s Velocity Ratio 0.90 AoV Mean James. 1.14 m/s AoV Peak Grad 10.2 mmHg LVOT SV 91.66 mL AoV Mean Grad 5.8 mmHg AoV VTI 0.329 m AoV Area VTI 2.78 cm2 AoV Area/ BSA (VTI) 1.26 cm/m2 Mitral Valve MV DT 307 (160-240 msec) MV PHT 89 msec MV Area PHT 2.47 cm2 MV VTI 0.247 m MV Area VTI 3.72 (4.0-6.0 cm2) Pulmonary Valve PV Vmax 0.99 (0.5-1.5 m/s) RVOT Peak Gr. 2.40 mmHg PV Peak Grad 3.9 mmHg RVOT Mean Gr. 1.25 mmHg PV Mean Grad 2.2 mmHg RVOT VTI 0.183 m PV VTI 0.227 m RVOT Vmax 0.78 m/s Tricuspid Valve TR Peak Grad 22.7 mmHg TR Vmax 2.39 m/s RA Pressure 3.00 mmHg RVSP (TR) 25.8 mmHg
== END ==
PROVIDERS: PCP Nurse Practitioner Adult Health; Visit Provider Nurse Practitioner Adult Health
DX: I44.7 Left bundle-branch block, unspecified (principal); R00.1 Bradycardia, unspecified
CPT/HCPCS: 93306

== ENCOUNTER 2022-02-18 17:19 | Outpatient (CLI) | payer MEDICAID, SELFPAY ==
--- NOTE | 2022-02-18 17:15 | RT.EKG_ITS ---
APPROVED REPORT Exam: Resting ECG Reason for Exam: assess cardiac rhythm Patient Location: O HR:50 bpm ECG Measurements Heart Rate 50 AXIS FL 201 P 43 QRSd 97 QRS 9 QT 434 T 31 QTc 395 Conclusion Sinus bradycardia...rate< 60 Normal Electrocardiogram
== END 2022-02-18 17:20 | disposition home or self-care (01) ==
LOC: DI.KIM 17:21
PROVIDERS: PCP Nurse Practitioner Adult Health; Visit Provider Nurse Practitioner Adult Health
DX: I44.7 Left bundle-branch block, unspecified (principal); R00.1 Bradycardia, unspecified
CPT/HCPCS: 93010

== ENCOUNTER 2022-03-06 13:21 | Outpatient (CLI) | payer MEDICAID, SELFPAY ==
[2022-03-06 16:22] LABS: Iron 82 ug/dL (65-175); Total Iron Binding Capacity 327 ug/dL (250-450); Transferrin Sat 25 % (20-55)
[2022-03-06 16:35] LABS: Ferritin 413 ng/mL (26-388)
== END 2022-03-06 13:22 | disposition home or self-care (01) ==
LOC: LBO 13:21
PROVIDERS: PCP Nurse Practitioner Adult Health; Visit Provider Naturopath
DX: R77.8 Other specified abnormalities of plasma proteins (principal); R79.89 Other specified abnormal findings of blood chemistry
CPT/HCPCS: 36415; 82728; 83540; 83550

== ENCOUNTER 2022-04-02 03:03 | Outpatient (CLI) | payer MEDICAID, SELFPAY ==
[2022-04-02 12:53] LABS: Calculated LDL 138 mg/dL (<100); Cholesterol 209 mg/dL (<200); HDL Cholesterol 44 mg/dL (40-60); Triglyceride 139 mg/dL (<150)
== END 2022-04-02 03:04 | disposition home or self-care (01) ==
LOC: LBO 03:04
PROVIDERS: PCP Nurse Practitioner Adult Health; Visit Provider Nurse Practitioner Adult Health
DX: E78.5 Hyperlipidemia, unspecified (principal); I44.7 Left bundle-branch block, unspecified; R00.1 Bradycardia, unspecified
CPT/HCPCS: 36415; 80061

== ENCOUNTER 2022-06-16 03:08 | Outpatient (CLI) | payer MEDICAID, SELFPAY ==
[2022-06-16 11:30] LABS: ALT 32 U/L (16-63); AST 12 U/L (15-37); Albumin 4.3 g/dL (3.4-5.0); Alkaline Phosphatase 62 U/L (46-116); Anion Gap 6.1 mmol/L (3-11); BUN 14 mg/dL (7-18); Bilirubin, Direct 0.1 mg/dL (0.0-0.2); Bilirubin, Total 0.4 mg/dL (0.2-1.0); CO2 27.9 mmol/L (21.0-32.0); Chloride 104 mmol/L (98-107); Estimated GFR 85.63 (mL/min/1.73m2); FREE T4 1.15 ng/dL (0.76-1.46); Potassium 4.3 mmol/L (3.5-5.1); Sodium 138 mmol/L (136-145); TSH 0.85 uIU/mL (0.36-3.74); Total Protein 7.6 g/dL (6.4-8.2)
[2022-06-16 11:42] LABS: Lithium 0.7 mmol/l (0.6-1.2)
== END 2022-06-16 03:09 | disposition home or self-care (01) ==
LOC: LBO 03:08
PROVIDERS: PCP Nurse Practitioner Adult Health; Visit Provider Psychiatry & Neurology Psychiatry
DX: F31.9 Bipolar disorder, unspecified (principal)
CPT/HCPCS: 36415; 80051; 80076; 84520; 80178; 82565; 84439; 84443

== ENCOUNTER → 2022-07-14 01:12 | Outpatient (CLI) | payer MEDICAID, SELFPAY ==
--- NOTE | 2022-07-14 07:30 | DI.RAD_ITS ---
Exam(s) XR KNEE RT 3V AP,LAT,CORKY EXAM: XR KNEE RT 3V AP,LAT,CORKY CLINICAL HISTORY: assess bone,rt knee pain, m25.561. TECHNIQUE: 2D digital imaging was performed. COMPARISON: CR RIGHT KNEE 3 VIEWS from 02/05/2015 FINDINGS: 3 views No evidence of acute fracture or joint effusion. Bone density normal. No osseous lesions. No joint space narrowing. No osteophytes. IMPRESSION: No significant osseous findings. Also no obvious joint effusion. DATA REPOSITORY: RADIATION DOSE DELIVERED:
== END ==
PROVIDERS: PCP Nurse Practitioner Adult Health; Visit Provider Nurse Practitioner Adult Health
DX: M25.561 Pain in right knee (principal)
CPT/HCPCS: 73562

== ENCOUNTER 2023-01-19 02:07 | Outpatient (CLI) | payer MEDICAID, SELFPAY ==
[2023-01-19 11:19] LABS: Lithium 0.8 mmol/l (0.6-1.2)
[2023-01-19 11:33] LABS: Anion Gap 8.4 mmol/L (3-11); BUN 18 mg/dL (7-18); CO2 26.6 mmol/L (21.0-32.0); CREATININE 0.9 mg/dL (0.70-1.30); Chloride 103 mmol/L (98-107); Estimated GFR 96.57 (mL/min/1.73m2); FREE T4 1.08 ng/dL (0.76-1.46); Potassium 4.4 mmol/L (3.5-5.1); Sodium 138 mmol/L (136-145); TSH 0.82 uIU/mL (0.36-3.74)
== END 2023-01-19 02:08 | disposition home or self-care (01) ==
LOC: LBO 02:08
PROVIDERS: PCP Nurse Practitioner Adult Health; Visit Provider Psychiatry & Neurology Psychiatry
DX: F31.9 Bipolar disorder, unspecified (principal)
CPT/HCPCS: 36415; 80051; 84520; 80178; 82565; 82575; 84439; 84443

== ENCOUNTER 2023-02-11 14:02 | Outpatient (CLI) | payer MEDICAID, SELFPAY ==
--- NOTE | 2023-02-11 14:00 | RT.EKG_ITS ---
APPROVED REPORT Exam: Resting ECG Reason for Exam: NPW Baseline needed Patient Location: O HR:55 bpm ECG Measurements Heart Rate 55 AXIS SC 190 P 53 QRSd 103 QRS 17 QT 415 T 34 QTc 397 Conclusion Sinus rhythm...normal P axis, V-rate 50- 99 Normal Electrocardiogram
== END 2023-02-11 14:03 | disposition home or self-care (01) ==
LOC: DI.CARD 14:03
PROVIDERS: PCP Nurse Practitioner Adult Health; Visit Provider Internal Medicine Cardiovascular Disease
DX: R00.1 Bradycardia, unspecified (principal)
CPT/HCPCS: 93010

== ENCOUNTER 2023-04-15 03:37 | Outpatient (CLI) | payer MEDICAID, SELFPAY ==
[2023-04-15 10:33] LABS: ALT 29 U/L (16-63); AST 6 U/L (15-37); Albumin 4.2 g/dL (3.4-5.0); Alkaline Phosphatase 73 U/L (46-116); Anion Gap 9.4 mmol/L (3-11); BUN 21 mg/dL (7-18); Bilirubin, Total 0.3 mg/dL (0.2-1.0); CO2 26.6 mmol/L (21.0-32.0); CREATININE 1.1 mg/dL (0.70-1.30); Calcium 9.6 mg/dL (8.5-10.1); Calculated LDL 141 mg/dL (<100); Chloride 105 mmol/L (98-107); Cholesterol 234 mg/dL (<200); Ferritin 354 ng/mL (26-388); Glucose 148 mg/dL (74-106); HDL Cholesterol 47 mg/dL (40-60); Potassium 4.4 mmol/L (3.5-5.1); Sodium 141 mmol/L (136-145); Total Protein 7.7 g/dL (6.4-8.2); Triglyceride 233 mg/dL (<150)
== END 2023-04-15 03:38 | disposition home or self-care (01) ==
LOC: LBO 03:37
PROVIDERS: Absent Provider Nurse Practitioner Adult Health; PCP Nurse Practitioner Adult Health; Visit Provider Nurse Practitioner Adult Health
DX: I10 Essential (primary) hypertension (principal); E78.5 Hyperlipidemia, unspecified; R93.2 Abnormal findings on diagnostic imaging of liver and biliary tract; R16.0 Hepatomegaly, not elsewhere classified; R79.89 Other specified abnormal findings of blood chemistry
CPT/HCPCS: 36415; 80053; 80061; 82728

== ENCOUNTER → 2023-04-27 00:29 | Outpatient (CLI) | payer MEDICAID, SELFPAY ==
--- NOTE | 2023-04-27 06:45 | DI.US_ITS ---
Exam(s) US ABDOMEN EXAM: US ABDOMEN CLINICAL HISTORY: interval assessment,ABNL LIVER US,HEPATOMEGALY,R16.0,R93.2,ALCOHOL USE TECHNIQUE: Ultrasound abdomen performed using standard protocol. COMPARISON: US US ABDOMEN LIMITED from 12/26/2021 FINDINGS: LIVER: Enlarged at 22 cm in length. Diffusely increased echogenicity consistent with mild to moderat e hepatic steatosis. No focal liver lesions are seen. GALLBLADDER: No evidence of cholelithiasis. No evidence of wall thickening. No pericholecystic fluid identified. ARREDONDO'S SIGN: Negative. BILIARY SYSTEM: No intrahepatic or extrahepatic biliary ductal dilation. KIDNEYS: Kidneys are symmetric in size. No evidence of renal calculi. No evidence of hydronephrosis. 1.8 centimeters cyst lower pole right kidney. No for 0 recommended. No suspicious renal mass ident ified. PANCREAS: Normal where visualized. SPLEEN: Not enlarged. ABDOMINAL AORTA AND IVC: Visualized portions normal caliber. ASCITES: None seen. IMPRESSION: Enlarged liver with uksc-tz-msoasfsh hepatic steatosis. DATA REPOSITORY:
== END ==
PROVIDERS: PCP Nurse Practitioner Adult Health; Visit Provider Nurse Practitioner Adult Health
DX: K76.0 Fatty (change of) liver, not elsewhere classified (principal)
CPT/HCPCS: 76700

== ENCOUNTER 2023-07-18 10:03 | Emergency (ER) | payer MEDICAID, SELFPAY ==
[2023-07-18 10:10] VITALS: BP 125/83; PULSE 60; RESP 18; TEMP 37.1; O2SAT 100
[2023-07-18 10:32] VITALS: BP 148/88; PULSE 54; RESP 18; TEMP 37.1; O2SAT 99
[2023-07-18 12:04] VITALS: BP 148/86; PULSE 88; RESP 18; O2SAT 98
--- NOTE | 2023-07-18 12:10 | W.ED.GENAD ---
Discharge Plan Disposition Patient Disposition: Home Discharge Details Clinical Impression: URI, acute Primary Care Provider: Kathrin Rosas ED Provider: Pennie Manuel Home Meds and New Rx's Prescriptions: New mometasone [Nasonex 24hr Allergy] 50 mcg/actuation spray,non-aerosol 2 spray intranasal BID Qty: 17 0RF Rx Instructions: administer into each nostril doxycycline hyclate 100 mg capsule 100 mg PO BID Qty: 14 0RF Continued biotin 10,000 mcg capsule 5,000 mcg PO DAILY vitamin B complex Capsule 1 cap PO DAILY magnesium oxide 500 mg tablet 1,000 mg PO DAILY aspirin 81 mg tablet,delayed release (DR/EC) 81 mg PO DAILY Patient Comments: Prevention--CRC & CVA/[place] venlafaxine 150 mg tablet extended release 24hr 75 mg PO QHS Patient Comments: takes with 50mg tab at hs Galzin 50 mg (zinc) capsule 50 mg PO DAILY redhm-pokqx-6-lfk-zlo-eoazna [krill oil] 860-71-61-50 mg capsule 1 cap PO DAILY lutein 20 mg capsule 20 mg PO DAILY Rx Instructions: give with meal/snack trazodone 50 mg tablet 100 mg PO PRN Rx Instructions: per pt allowed to take 1-2 tabs prn lithium carbonate 300 mg tablet 1,125 mg PO HS Patient Comments: 10/17/[place] [facility] [place] Instructions: [facility] BECCA LOGAN omeprazole 20 mg capsule,delayed release(DR/EC) 20 mg PO DAILY Qty: 90 3RF Rx Instructions: Or as directed for barretts esophagus. sildenafil 100 mg tablet See Rx Instructions .ROUTE .COMPLEX Qty: 20 0RF Dose Instruction: TAKE 1/2 TO 1 TABLET BY MOUTH DAILY NEEDED FOR SEXUAL ACTIVITY, ADMINISTER 30MINUTES TO 4HOURS BEFORE ACTIVITY Rx Instructions: TAKE 1/2 TO 1 TABLET BY MOUTH DAILY NEEDED FOR SEXUAL ACTIVITY, ADMINISTER 30MINUTES TO 4HOURS BEFORE ACTIVITY cholecalciferol (vitamin D3) 125 mcg (5,000 unit) capsule 5,000 unit PO DAILY Discharge Instructions Instructions: Upper Respiratory Infection (ED) Additional Instructions: Take the Nasacort twice a day for the next 14 days Recommend pseudoephedrine as prescribed, do not take for longer than 3 days Take Tylenol 650 every 4-6 hours If you are feeling no improvement in the next couple of days you may start taking the doxycycline, if you start this medication this is an antibiotic and you should have yogurt daily while on this Should you develop new or worsening symptoms, please return for reassessment Referrals: Kathrin Rosas NP [Primary Care Provider] - Discharge Data Discharge Date/Time-TO BE ENTERED AT DEPARTURE: 07/18/23 12:06 Medical Decision Making 63-year-old male presenting in no acute distress without respiratory symptoms, concern for sinusitis Clinically he appears well, vitals are stable, cardiac rate rhythm regular lungs are clear to auscultation, no maxillary tenderness or swelling, no ethmoid tenderness or swelling Given longevity of symptoms, I think it is reasonable to treat for bacterial source of sinusitis at this time, however I like patient to use supportive care with pseudoephedrine and Nasonex for the next several days Return precautions reviewed and patient expressed understanding HPI General Date/Time Provider Initiated Documentation: 07/18/23 11:18. HPI Narrative: This 63-year-old male with history of bipolar disorder on lithium presents with report of upper respiratory congestion for the past 14 days. Denies fever, has had chills in the past 24 hours. Has had purulent nasal drainage, dry cough without shortness of breath or chest pain. Denies any additional complaints at this time. Related Data Home Medications Medication Instructions Recorded Confirmed aspirin 81 mg tablet,delayed 81 mg PO DAILY 12/15/19 07/18/23 release trazodone 50 mg tablet 100 mg PO PRN 08/16/20 07/18/23 cholecalciferol (vitamin D3) 125 5,000 unit PO DAILY 02/14/21 07/18/23 mcg (5,000 unit) capsule magnesium oxide 500 mg tablet 1,000 mg PO DAILY 01/05/22 07/18/23 vitamin B complex 1 cap PO DAILY 01/05/22 07/18/23 lithium carbonate 300 mg tablet 1,125 mg PO HS 07/07/22 07/18/23 krill 1 cap PO DAILY 10/05/22 07/18/23 oof-aw-2-ads-rol-uzcixwehjsrnb 300 mg-90 mg-24 mg-50 mg capsule (krill oil) zinc acetate 50 mg (zinc) capsule 50 mg PO DAILY 10/05/22 07/18/23 (Galzin) biotin 10,000 mcg capsule 5,000 mcg PO DAILY 02/11/23 07/18/23 lutein 20 mg capsule 20 mg PO DAILY 02/11/23 07/18/23 venlafaxine 150 mg tablet,extended 75 mg PO QHS 02/11/23 07/18/23 release 24 hr omeprazole 20 mg capsule,delayed 20 mg PO DAILY #90 caps 02/23/23 07/18/23 release sildenafil 100 mg tablet See Rx Instructions .Route 05/10/23 07/18/23 .COMPLEX #20 tabs doxycycline hyclate 100 mg capsule 100 mg PO BID #14 caps 07/18/23 mometasone 50 mcg/actuation nasal 2 spray intranasal BID #17 grams 07/18/23 spray (Nasonex 24hr Allergy) Previous Rx's Medication Instructions Recorded omeprazole 20 mg capsule,delayed 20 mg PO DAILY #90 caps 02/23/23 release sildenafil 100 mg tablet See Rx Instructions .Route 05/10/23 .COMPLEX #20 tabs doxycycline hyclate 100 mg capsule 100 mg PO BID #14 caps 07/18/23 mometasone 50 mcg/actuation nasal 2 spray intranasal BID #17 grams 07/18/23 spray (Nasonex 24hr Allergy) Allergies Allergy/AdvReac Type Severity Reaction Status Date / Time No Known Allergies Allergy Verified 07/18/23 10:12 General Stated Complaint: GenMedical HUBER: 4 PFSH All Active Problems (Updated 07/18/23 @ 11:50 by KAYLEE Walker) URI, acute (Acute) Impaired fasting glucose (Acute ~03/2023) 148; A1C 5.1% Hyperlipidemia (Chronic) ASCVD ~10%-->not a candidate for statin Abnormal liver ultrasound (Acute ~11/2021) Hepatomegaly (Acute ~11/2021) BPH loc w urin obs/LUTS (Chronic) Essential (primary) hypertension (Chronic) Dx'ed 07/2020; started on Amlodipine (Lisinopril interacted with [place]) Hypertriglyceridemia (Acute) Increased BMI (Chronic 05/03/12) Tubular adenoma of colon (Chronic 12/21/17) 2017 & 02/2021 Obstructive sleep apnea (Chronic 10/19/15) Tx: CPAP (2021); Mouth guard & weight loss severe AHI 44.4 CPAP MARYJO Leung 03/06/22- cpap 10cm H20. [facility], Mariana Edmondson NP Erectile dysfunction (Chronic 01/01/16) Effexor Esophageal reflux (Chronic 05/03/12) Long-term Omeprazole Bipolar disorder (Chronic 05/03/12) [facility] Barretts esophagus (Chronic 03/21/15) endoscopy 03/11/15 Gabriella, 09/28/17 & 02/2021 with Beard Alcohol use disorder (Chronic 05/03/12) Medical History Bradycardia (02/15/15) Cerumen impaction Hx wax removal needed, lodged in today (01/12/20). PLan to use debrox x2-3 days before returning. Seeing ENT next month (January 2020). COVID-19 Dx'ed State of [place] (see scanned docs) 11/23/2020 Elevated ferritin (~11/2021) Resolved with EtOH cessation History of vertigo EPisodes of sensation of room spinning .. has resolved on its own, but happens out of nowhere it seems ASIA (obstructive sleep apnea) Rupture of right long head biceps tendon SARS-CoV-2 positive (11/24/20) pt reported, has had both imms. cgc Stapedial myoclonus Tinnitus, left Total bilirubin, elevated Surgical History Abnormal colonoscopy (~02/2021) TAs x2 Colonoscopy - MAC (12/21/17) EGD - MAC (09/28/17) EGD w/ Bx (03/11/15) Excision, Lesion (09/28/17) right shoulder skin tag H/O esophagogastroduodenoscopy (~02/2021) Barretts Family History Mother , age 85 Alzheimer disease Diabetes Depression Father , 88yo HF Essential hypertension Bladder cancer COPD (chronic obstructive pulmonary disease) Heart disease [place], CABG Neuropathy Other Multiple polyps of sigmoid colon Social History Smoking/Tobacco Use Status: Never Second Hand Exposure: Yes Smoking risk assessment performed?: Yes Alcohol Intake: current Alcohol Intake frequency: a few times a week Counseling given: No Drug use: Occasionally Substance use type: marijuana Adopted: No Caregiver/Support person: No Foster care: No Household members: none Housing: apartment Number of Children: 2 number of grandchildren: 1 Communication Needs: None Education Level: college Details: Associate Business Do you need help understanding health information?: Never current occupation: Caregiver Pets and animals: No Sexually active: No Do you think of yourself as: straight/heterosexual Current gender identity: male What is your relationship status?: How often do you talk on the phone with friends or family?: three or more times per week How often do you get together with friends or relatives?: three or more times per week How often do you attend episcopal or jehovah's witness services?: 4 or more times per year Do you belong to any clubs or organized social groups?: no Panel score (0-1 are the most socially isolated patients): 2 What type of physical activity do you participate in: walking Duration: 15-30 minutes/day Frequency: 3-4 times per week Ailyn/Hinduism: Anabaptism Seatbelt use: always Helmet use: Yes Drive intox or ride w/intox helper driver: No Working smoke detector in home: Yes Fire extinguisher in home: Yes Carbon monox detector in home: Yes Firearms in home: No Do you feel safe at home: Yes Do you feel safe in your relationship?: Yes Victim of physical abuse: No Victim of emotional abuse: No Victim of sexual abuse: No Course Vital Signs Vital signs: Vital Signs Temperature 37.1 C 07/18/23 10:10 Pulse 60 07/18/23 10:10 Respiratory Rate 18 07/18/23 10:10 Blood Pressure 125/83 07/18/23 10:10 Pulse Oximetry 100 07/18/23 10:10 Temperature 37.1 C 07/18/23 10:32 Temperature Source Tympanic 07/18/23 10:32 Pulse 88 07/18/23 12:04 Respiratory Rate 18 07/18/23 12:04 Respiratory Effort Normal, Non-Labored 07/18/23 10:14 Blood Pressure 148/86 H 07/18/23 12:04 Pulse Oximetry 98 07/18/23 12:04 Oxygen Delivery Method Room Air 07/18/23 10:32 Oxygen Flow Rate 0 07/18/23 10:10 PAWSS Have you Been Recently Intoxicated or Drunk Within the Last 30 days?: No Have you Ever Experienced Previous Episodes of Alcohol Withdrawal?: No Have you ever Experienced Withdrawal Seizures?: No Have you ever Experienced Delirium Tremens(DT)s?: Yes Have you ever undergone Alcohol Rehabilitation Treatment (i.e, inpt ot outpatient treatment programs)?: Yes Have you ever Experienced Blackouts?: No Have you ever Combined Alcohol with other Downers within the last 90 days?: No Have you ever Combined Alcohol with any other Substance of Abuse during the last 90 days?: No Positive Blood Alcohol level on Presentation? [PCS.BAL]: No Evidence of Increased Autonomic Activity (i.e. HR>120, tremor, sweating, agitation, nausea)?: No Result: 2
== END 2023-07-18 12:06 | disposition home or self-care (01) ==
PROVIDERS: Emergency Provider Physician Assistant; PCP Nurse Practitioner Adult Health
DX: J06.9 Acute upper respiratory infection, unspecified (principal)
CPT/HCPCS: 87426; 99283; 99284

== ENCOUNTER 2023-07-30 16:53 | Outpatient (CLI) | payer MEDICAID, SELFPAY ==
--- NOTE | 2023-07-30 16:45 | RT.EKG_ITS ---
APPROVED REPORT Exam: Resting ECG Reason for Exam: Hypertension Patient Location: O HR:48 bpm ECG Measurements Heart Rate 48 AXIS SD 195 P 35 QRSd 104 QRS 16 QT 434 T 32 QTc 388 Conclusion Sinus bradycardia...rate< 50 I have reviewed and interpreted ECG and agree with software generated interpretation.
== END 2023-07-30 16:54 | disposition home or self-care (01) ==
LOC: DI.KIM 16:54
PROVIDERS: PCP Nurse Practitioner Adult Health; Visit Provider Emergency Medicine
DX: I10 Essential (primary) hypertension (principal)
CPT/HCPCS: 93010

== ENCOUNTER → 2023-08-23 01:01 | Outpatient (CLI) | payer MEDICAID, SELFPAY ==
--- NOTE | 2023-08-23 07:15 | DI.NM_ITS ---
APPROVED REPORT Exam: Exercise Treadmill Patient Location: Out-Patient Room/Bed: Stress Nurse: Jevon Yo RN Ordering Provider:TATE ARREGUIN, Contact Number: BMI: 33.71 Baseline Rhythm: SB Medical History Medical History: Bradycardia, ASIA, HLD, ETOH, esophageal reflux, vertigo. Cardiac Medications: Amlodipine, asa. Allergies: No known drug allergies Cardiac Risk Factors: Obesity, HTN, Hyperlipidemia Pretest Chest Pain Characteristics: No chest pain Exercise History: Sedentary Lung Sounds: Clear to auscultation Heart Sounds: Regular Stress Test Details Test: Exercise stress testing was performed using a Moy protocol. Nuclear Acquisition: Rest Tc-99m/Stress Tc-99m 1 day Rest Isotope: Tc-99m Sestamibi. Dose: 10.0 Date: 08/23/2023 Injection Time: 0845 Stress Isotope: Tc-99m Sestamibi. Dose: 31.0 Date: 08/23/2023 Injection Time: 1015 HR Resting HR Supine: 55 bpm Max Heart Rate (APMHR): 157 bpm Resting HR Standin bpm Target HR (85% APMHR): 133 bpm Max HR Achieved: 145 bpm % of APMHR: 92 Recovery HR: 71 bpm HR response to stress: Normal HR response to stress BP Resting BP Supine: 156/92 mmHg Resting BP Standin/94 mmHg Max BP: 210/80 mmHg Recovery BP: 157/84 mmHg BP response to stress: Normal blood pressure response to stress. ECG Resting ECG: Sinus Bradycardia Ectopy: none Stress ECG: Sinus Tachycardia ST Change: No significant ST segment changes noted Arrhythmia: None Recovery ECG: Sinus Rhythm Recovery ST Change: No significant ST segment changes noted Recovery Arrhythmia: None Clinical Reason for Termination: Fatigue, Target HR Achieved Stress Symptoms: General Fatigue Exercise duration: 5 min15 sec Highest Stage Reached: Stage 2: 2.5 mph at 12% grade. Exercise capacity: 7.05 METs Angina Score: None Lopez Treadmill Score: 4.5 Rate Pressure Product: [id number] Stress ECG Conclusion 1. 1. Normal clinical response 2. 2. Normal ECG response without induced ischemia 3. 3. Hypertensive response 4. 4. Negative for inducible ischemia. Lopez Treadmill Score is 4.5 which is Moderate risk. Stress Test Summary STAGE Time (mins) Speed (mph) Grade (%) HR BP SpO2 SYMPTOMS METS Supine 55 156/92 96 none Standing 61 140/94 none 1 3 1.7 10 117 130/100 98 none 4.5 1 min recovery 122 210/80 98 none 3 min recovery 83 182/88 99 none 6 min recovery 71 154/84 99 none
== END ==
PROVIDERS: PCP Nurse Practitioner Adult Health; Visit Provider Emergency Medicine
DX: I10 Essential (primary) hypertension (principal); M79.602 Pain in left arm
CPT/HCPCS: 78452; 93017

== ENCOUNTER 2023-12-28 05:07 | Outpatient (CLI) | payer MEDICAID, SELFPAY ==
[2023-12-28 15:16] LABS: Abs Immature Grans 0.03 10^3/uL (0.0-0.06); Absolute Basophil Count 0.07 10^3/uL (0.0-0.2); Absolute Eosinophil Count 0.35 10^3/uL (0.0-0.7); Absolute Lymphocyte Count 1.92 10^3/uL (1.2-3.4); Absolute Monocyte Count 0.42 10^3/uL (0.1-0.8); Absolute Neutrophil Count 4.51 10^3/uL (1.2-6.7); Eosinophils % 4.8 %; HCT 43.1 % (40.0-50.0); HGB 14.4 g/dL (13.5-17.5); Immature Grans % 0.4 %; Lymphocytes % 26.3 %; MCH 30.3 pg (27.0-33.0); MCHC 33.4 % (32.0-36.0); MCV 91 fL (80-95); MPV 9.9 fL (8.0-11.0); Monocytes % 5.8 %; Neutrophils % 61.7 %; Platelet Count 236 10^3/uL (130-400); RBC 4.76 10^6/uL (4.36-5.78); RDW 13.6 % (11.8-14.1); RDW-SD 45.6 fL
[2023-12-28 15:21] LABS: Hemoglobin A1C 5.3 % (<5.7)
[2023-12-28 16:00] LABS: Lithium 0.6 mmol/L (0.6-1.2)
[2023-12-28 16:21] LABS: ALT 37 U/L (16-63); AST 16 U/L (15-37); Albumin 4.3 g/dL (3.4-5.0); Alkaline Phosphatase 75 U/L (46-116); Anion Gap 9.9 mmol/L (3-11); BUN 17 mg/dL (7-18); Bilirubin, Total 0.7 mg/dL (0.2-1.0); CO2 26.1 mmol/L (21.0-32.0); Calcium 9.1 mg/dL (8.5-10.1); Chloride 105 mmol/L (98-107); Estimated GFR 84.57 (mL/min/1.73m2); Ferritin 451 ng/mL (26-388); Glucose 112 mg/dL (74-106); Potassium 3.8 mmol/L (3.5-5.1); Sodium 141 mmol/L (136-145); Total Protein 7.7 g/dL (6.4-8.2); Vitamin B12 509 pg/mL (193-986)
[2023-12-28 16:22] LABS: Folate > 20.0 ng/mL (8.6-20.0)
[2023-12-28 23:08] LABS: Thyroglobulin Antibody <15 U/mL (<=60); Thyroperoxidase Antibody <28 U/mL (<=60)
[2024-01-01 08:47] LABS: Thiamine (Vitamin B1), WB 172 nmol/L (70-180)
== END 2023-12-28 05:08 | disposition home or self-care (01) ==
PROVIDERS: PCP Nurse Practitioner Adult Health; Visit Provider Registered Nurse
DX: Z51.81 Encounter for therapeutic drug level monitoring (principal)
CPT/HCPCS: 36415; 80053; 86376; 80178; 82607; 82728; 82746; 83036; 84425; 85025

== ENCOUNTER 2024-10-12 01:38 | Outpatient (CLI) | payer MEDICAID, SELFPAY ==
[2024-10-12 09:57] LABS: Abs Immature Grans 0.04 10^3/uL (0.0-0.06); Absolute Basophil Count 0.06 10^3/uL (0.0-0.2); Absolute Eosinophil Count 0.32 10^3/uL (0.0-0.7); Absolute Lymphocyte Count 1.65 10^3/uL (1.2-3.4); Absolute Monocyte Count 0.38 10^3/uL (0.1-0.8); Absolute Neutrophil Count 3.91 10^3/uL (1.2-6.7); Basophils % 0.9 %; HCT 42.3 % (40.0-50.0); HGB 13.6 g/dL (13.5-17.5); Immature Grans % 0.6 %; Lymphocytes % 25.9 %; MCH 30.2 pg (27.0-33.0); MCHC 32.2 % (32.0-36.0); MCV 94 fL (80-95); MPV 9.4 fL (8.0-11.0); Neutrophils % 61.6 %; Platelet Count 220 10^3/uL (130-400); RBC 4.51 10^6/uL (4.36-5.78); RDW 14.1 % (11.8-14.1); RDW-SD 49.4 fL; WBC 6.36 10^3/uL (4.4-10.8)
[2024-10-12 10:08] LABS: Hemoglobin A1C 5.4 % (<5.7)
[2024-10-12 10:42] LABS: ALT 47 U/L (16-63); AST 24 U/L (15-37); Alkaline Phosphatase 77 U/L (46-116); Anion Gap 6.1 mmol/L (3-11); BUN 14 mg/dL (7-18); Bilirubin, Total 0.4 mg/dL (0.2-1.0); CO2 27.9 mmol/L (21.0-32.0); CREATININE 0.9 mg/dL (0.70-1.30); Calcium 9.1 mg/dL (8.5-10.1); Chloride 108 mmol/L (98-107); Estimated GFR 95.37 (mL/min/1.73m2); GGT 97 U/L (15-85); Glucose 112 mg/dL (74-106); Potassium 4.4 mmol/L (3.5-5.1); Sodium 142 mmol/L (136-145); TSH 0.85 uIU/mL (0.36-3.74); Total Protein 7.3 g/dL (6.4-8.2)
[2024-10-12 10:47] LABS: Lithium 0.9 mmol/L (0.6-1.2)
[2024-10-12 11:12] LABS: Vitamin D 25 Total 30 ng/mL (30-100)
[2024-10-12 11:22] LABS: ETHANOL BLOOD < 3.0 mg/dL (<10); Ferritin 390 ng/mL (26-388); Vitamin B12 997 pg/mL (193-986)
[2024-10-18 10:52] LABS: Thiamine (Vitamin B1), WB 171 nmol/L (70-180)
== END 2024-10-12 01:39 | disposition home or self-care (01) ==
PROVIDERS: PCP Nurse Practitioner Adult Health; Visit Provider Registered Nurse
DX: F31.81 Bipolar II disorder (principal); Z51.81 Encounter for therapeutic drug level monitoring; F10.10 Alcohol abuse, uncomplicated; E66.9 Obesity, unspecified
CPT/HCPCS: 36415; 80053; 82306; 80178; 80320; 82607; 82728; 82977; 83036; 84425; 84443; 85025

== ENCOUNTER 2024-11-20 00:34 | Outpatient (CLI) | payer MEDICAID, SELFPAY ==
[2024-11-20 10:05] LABS: HCT 45.2 % (40.0-50.0); HGB 14.5 g/dL (13.5-17.5); MCH 29.8 pg (27.0-33.0); MCHC 32.1 % (32.0-36.0); MCV 93 fL (80-95); MPV 9.1 fL (8.0-11.0); Platelet Count 243 10^3/uL (130-400); RBC 4.87 10^6/uL (4.36-5.78); WBC 7.51 10^3/uL (4.4-10.8)
[2024-11-20 10:27] LABS: Hemoglobin A1C 5.5 % (<5.7)
[2024-11-20 11:07] LABS: ALT 42 U/L (16-63); AST 17 U/L (15-37); Albumin 4.1 g/dL (3.4-5.0); Alkaline Phosphatase 91 U/L (46-116); Anion Gap 9.5 mmol/L (3-11); BUN 13 mg/dL (7-18); Bilirubin, Total 0.7 mg/dL (0.2-1.0); CO2 28.5 mmol/L (21.0-32.0); CREATININE 0.9 mg/dL (0.70-1.30); Calcium 9.3 mg/dL (8.5-10.1); Calculated LDL 117 mg/dL (<100); Chloride 105 mmol/L (98-107); Cholesterol 243 mg/dL (<200); Estimated GFR 95.37 (mL/min/1.73m2); Ferritin 401 ng/mL (26-388); Folate > 20.0 ng/mL (8.6-20.0); Glucose 108 mg/dL (74-106); HDL Cholesterol 51 mg/dL (>or=40); Magnesium 2.5 mg/dL (1.8-2.4); Potassium 4.4 mmol/L (3.5-5.1); Sodium 143 mmol/L (136-145); Total Protein 7.6 g/dL (6.4-8.2); Triglyceride 377 mg/dL (<150); Vitamin B12 477 pg/mL (193-986)
[2024-11-20 19:24] LABS: PSA, Screening 0.2 ng/mL (<=4.5)
[2024-11-23 08:59] LABS: Thiamine (Vitamin B1), WB 179 nmol/L (70-180)
== END 2024-11-20 00:35 | disposition home or self-care (01) ==
PROVIDERS: PCP Nurse Practitioner Adult Health; Referring Provider Nurse Practitioner Adult Health; Visit Provider Nurse Practitioner Adult Health
DX: I10 Essential (primary) hypertension (principal); E78.1 Pure hyperglyceridemia; E78.5 Hyperlipidemia, unspecified; R73.01 Impaired fasting glucose; N40.1 Benign prostatic hyperplasia with lower urinary tract symptoms
CPT/HCPCS: 36415; 80053; 80061; 84153; 85027; 82607; 82728; 82746; 83036; 83735; 84425

== ENCOUNTER 2025-01-04 01:56 | Outpatient (CLI) | payer MEDICAID, SELFPAY ==
[2025-01-04 10:48] LABS: Calculated LDL 109 mg/dL (<100); Cholesterol 186 mg/dL (<200); Ferritin 278 ng/mL (26-388); HDL Cholesterol 38 mg/dL (>or=40); Triglyceride 199 mg/dL (<150)
== END 2025-01-04 01:57 | disposition home or self-care (01) ==
LOC: LBO 01:56
PROVIDERS: Absent Provider Nurse Practitioner Adult Health; PCP Nurse Practitioner Adult Health; Referring Provider Nurse Practitioner Adult Health; Visit Provider Nurse Practitioner Adult Health
DX: E78.1 Pure hyperglyceridemia (principal); R79.89 Other specified abnormal findings of blood chemistry
CPT/HCPCS: 36415; 80061; 82728

== ENCOUNTER 2025-02-09 17:58 | Outpatient (REF) | payer MEDICAID, SELFPAY ==
[2025-02-09 18:52] LABS: Hemoglobin A1C 5.5 % (<5.7)
== END 2025-02-09 17:59 | disposition home or self-care (01) ==
LOC: LBN 17:58
PROVIDERS: PCP Nurse Practitioner Adult Health; Visit Provider Registered Nurse
DX: F31.81 Bipolar II disorder (principal); Z51.81 Encounter for therapeutic drug level monitoring; F10.10 Alcohol abuse, uncomplicated
CPT/HCPCS: 80053; 80178; 83036

== ENCOUNTER 2025-02-13 10:52 | Outpatient (CLI) | payer MEDICAID, SELFPAY ==
[2025-02-13 13:34] LABS: ALT 34 U/L (16-63); AST 15 U/L (15-37); Albumin 4.1 g/dL (3.4-5.0); Alkaline Phosphatase 87 U/L (46-116); Anion Gap 7.0 mmol/L (3-11); BUN 16 mg/dL (7-18); Bilirubin, Total 0.5 mg/dL (0.2-1.0); CO2 28.0 mmol/L (21.0-32.0); Calcium 9.3 mg/dL (8.5-10.1); Chloride 104 mmol/L (98-107); Estimated GFR 98.83 (mL/min/1.73m2); Glucose 89 mg/dL (74-106); Potassium 4.5 mmol/L (3.5-5.1); Sodium 139 mmol/L (136-145); Total Protein 7.5 g/dL (6.4-8.2)
[2025-02-13 13:58] LABS: Lithium 0.7 mmol/L (0.6-1.2)
== END 2025-02-13 10:53 | disposition home or self-care (01) ==
LOC: LBO 10:53
PROVIDERS: PCP Nurse Practitioner Adult Health; Visit Provider Registered Nurse
DX: F31.81 Bipolar II disorder (principal); Z51.81 Encounter for therapeutic drug level monitoring; F10.10 Alcohol abuse, uncomplicated; E66.9 Obesity, unspecified
CPT/HCPCS: 36415; 80053; 80178

== ENCOUNTER 2025-04-30 19:23 | Outpatient (REF) | payer MEDICAID, SELFPAY ==
[2025-04-30 20:16] LABS: Lithium 0.8 mmol/L (0.6-1.2)
[2025-04-30 20:20] LABS: Iron 110 ug/dL (65-175); Total Iron Binding Capacity 369 ug/dL (250-450); Transferrin Sat 30 % (20-55)
[2025-04-30 20:49] LABS: ALT 36 U/L (16-63); AST 13 U/L (15-37); Albumin 4.3 g/dL (3.4-5.0); Alkaline Phosphatase 84 U/L (46-116); Anion Gap 10.2 mmol/L (3-11); BUN 14 mg/dL (7-18); Bilirubin, Total 0.7 mg/dL (0.2-1.0); CO2 25.8 mmol/L (21.0-32.0); Calcium 9.5 mg/dL (8.5-10.1); Calculated LDL 142 mg/dL (<100); Chloride 103 mmol/L (98-107); Cholesterol 224 mg/dL (<200); Estimated GFR 84.05 (mL/min/1.73m2); Ferritin 289 ng/mL (26-388); Glucose 99 mg/dL (74-106); HDL Cholesterol 40 mg/dL (>or=40); Potassium 4.2 mmol/L (3.5-5.1); Sodium 139 mmol/L (136-145); Total Protein 7.2 g/dL (6.4-8.2); Triglyceride 212 mg/dL (<150); Vitamin B12 548 pg/mL (193-986)
[2025-05-10 19:29] LABS: Testosterone, Free 66.2 pg/mL (35.0-155.0)
== END 2025-04-30 19:24 | disposition home or self-care (01) ==
LOC: LBN 19:23
PROVIDERS: PCP Nurse Practitioner Adult Health; Visit Provider Registered Nurse
DX: F31.81 Bipolar II disorder (principal); Z51.81 Encounter for therapeutic drug level monitoring; F10.10 Alcohol abuse, uncomplicated; E66.9 Obesity, unspecified
CPT/HCPCS: 80053; 80061; 82533; 84402; 84403; 80178; 82607; 82728; 83540; 83550

== ENCOUNTER 2025-06-01 06:14 | Day surgery (SDC) | payer MEDICAID, SELFPAY ==
[2025-06-01 06:20] VITALS: BP 114/80; PULSE 48; RESP 16; TEMP 36.6; O2SAT 98
[2025-06-01] MEDS: Tropicam./Phenyleph. (1/2.5%) 5 ML BTL OS ×3 (06:48→07:02)
--- NOTE | 2025-06-01 07:07 | W.ANESPRE ---
General Info Date of Service Date Performed: 06/01/25 Height: 5 ft 11 in Weight: 113.5 kg Body Mass Index (BMI): 34.9 Surgical Procedure: Operation Date: 06/01/25 07:40 Proposed Procedure Side Surgeon p Cataract Extraction with IOL Implant Left Sj Mckeon MD Meds Allergies and Home Medications Allergies Allergy/AdvReac Type Severity Reaction Status Date / Time No Known Allergies Allergy Verified 06/01/25 06:37 Home Medication Medication Instructions Recorded aspirin 81 mg tablet,delayed 81 mg PO DAILY 12/15/19 release cholecalciferol (vitamin D3) 125 5,000 unit PO DAILY 02/14/21 mcg (5,000 unit) capsule magnesium oxide 1,000 mg PO DAILY 01/05/22 vitamin B complex 1 cap PO DAILY 01/05/22 krill 1 cap PO DAILY 10/05/22 lxi-qf-9-nqt-aul-oibidkoetrldk 300 mg-90 mg-24 mg-50 mg capsule (krill oil) zinc acetate 50 mg (zinc) capsule 50 mg PO DAILY 10/05/22 (Galzin) lutein 20 mg capsule 20 mg PO DAILY 02/11/23 venlafaxine 150 mg tablet,extended 75 mg PO QAM 02/11/23 release 24 hr acetylcysteine 600 mg capsule (NAC) 600 mg PO BID 01/17/24 clonazepam 1 mg tablet 1 mg PO QID PRN 06/08/24 lithium carbonate 450 mg 1,125 mg PO HS 06/08/24 tablet,extended release trazodone 50 mg tablet 50 mg PO HS PRN 06/08/24 amlodipine 5 mg tablet 5 mg PO DAILY 11/09/24 Held on 12/25/24. Instructions: not currently drinking inhalational spacing device #1 ea 03/20/25 (Aerochamber MV spacer) acamprosate 333 mg tablet,delayed 999 mg PO BID 05/23/25 release glutathione 500 mg capsule 500 mg PO DAILY 05/30/25 omeprazole 20 mg capsule,delayed 20 mg PO DAILY PRN 05/30/25 release Current Visit Medications: Current Medications Generic Name Dose Route Start Last Admin Trade Name Freq PRN Reason Stop Dose Admin Acetaminophen 1,000 mg 06/01/25 06:00 Acetaminophen 500 Mg Tab PO 07/01/25 05:59 Q4H PRN PRN Balanced Salt Solution 500 ml 06/01/25 06:00 Balanced Salt Soln.-Plus 500 Ml Bag OP 07/01/25 05:59 DIRECTED VIGNESH Miscellaneous Medication 0 ml 06/01/25 06:00 Prednisolone 1%, Moxifloxacin 0.5%, Bromfenac 0.09% 5.6ml Btl OS 07/01/25 05:59 DIRECTED VIGNESH Miscellaneous Medication 0 ml 06/01/25 06:00 06/01/25 07:02 Tropicam./Phenyleph. (1/2.5%) 5 Ml Btl OS 07/01/25 05:59 1 drp DIRECTED VIGNESH Administration Tetracaine HCl 0 ml 06/01/25 06:00 Tetracaine 0.5% 4 Ml Btl OS 07/01/25 05:59 DIRECTED VIGNESH PFSH Active Problems Active Problems: Problem Status Onset Code Posterior subcapsular age-related cataract of left eye Acute H25.042 Nuclear age-related cataract, left eye Acute H25.12 Acute low back pain Acute M54.50 Bipolar II disorder Chronic ~2011 F31.81 Impaired fasting glucose Acute ~03/2023 R73.01 Hyperlipidemia Chronic E78.5 Hepatomegaly Acute ~11/2021 R16.0 BPH loc w urin obs/LUTS Chronic N40.1 Essential (primary) hypertension Chronic I10 Hypertriglyceridemia Acute E78.1 Increased BMI Chronic 05/03/12 R63.8 Tubular adenoma of colon Chronic 12/21/17 D12.6 Obstructive sleep apnea Chronic 10/19/15 G47.33 Erectile dysfunction Chronic 01/01/16 N52.9 Esophageal reflux Chronic 05/03/12 K21.9 Barretts esophagus Chronic 03/21/15 K22.70 Alcohol use disorder Chronic 05/03/12 Medical History Medical History Post concussive syndrome (~12/2023) Abnormal liver ultrasound (~11/2021) Left arm pain Elevated ferritin (~11/2021) Resolved with EtOH cessation Stapedial myoclonus Tinnitus, left Rupture of right long head biceps tendon COVID-19 Dx'ed State of [place] (see scanned docs) 11/23/2020 SARS-CoV-2 positive (11/24/20) pt reported, has had both imms. cgc History of vertigo EPisodes of sensation of room spinning .. has resolved on its own, but happens out of nowhere it seems Cerumen impaction Hx wax removal needed, lodged in today (01/12/20). PLan to use debrox x2-3 days before returning. Seeing ENT next month (January 2020). Total bilirubin, elevated Bradycardia (02/15/15) ASIA (obstructive sleep apnea) Surgical History Surgical History H/O esophagogastroduodenoscopy (~02/2021) Barretts Abnormal colonoscopy (~02/2021) TAs x2 Excision, Lesion (09/28/17) right shoulder skin tag EGD w/ Bx (03/11/15) EGD - MAC (09/28/17) Colonoscopy - MAC (12/21/17) Tobacco Smoking/Tobacco Use Status: Never Passive smoking exposure: No Second hand exposure: Yes Alcohol Alcohol Intake: former Details: 05/23/25 has not consumed alcohol x 2m Substance Use Substance use: Occasionally Substance use type: marijuana Vital Signs and Lab Results Vital Signs Most Recent Vital Signs in EMR: Most Recent Vital Signs Temp Pulse Resp BP Pulse Ox 36.6 C 48 L 16 114/80 98 06/01/25 06:20 06/01/25 06:20 06/01/25 06:20 06/01/25 06:20 06/01/25 06:20 Imaging and Studies Imaging and Studies Study information below may be from another EMR and interpreted by another provider. Please see original notes in EMR for more complete details. EKG Summary: 07/30/03: Exam: Resting ECG Reason for Exam: Hypertension Patient Location: O HR:48 bpm ECG Measurements Heart Rate 48 AXIS PA 195 P 35 QRSd 104 QRS 16 QT 434 T32 QTc 388 Conclusion Sinus bradycardia...rate< 50 I have reviewed and interpreted ECG and agree with software generated interpretation. Stress Test Summary: 08/23/23: MPI Conclusion 1. Normal myocardial perfusion, no ischemia or infarct 2. Normal LV systolic function, EF 55% Carotid Artery Summary:: 12/26/21: IMPRESSION: No evidence for hemodynamically significant carotid stenosis. Criteria for Carotid Stenosis: Normal: ICA PSV <125 cm/s no plaque or intimal thickening is visible. <50% stenosis: ICA PSV <125 cm/s and plaque or intimal thickening is visible. 50-69% stenosis: ICA PSV is 125-250 cm/s and plaque is visible. >70% stenosis to near occlusion: ICA PSV >250 cm/s with visible plaque and luminal narrowing. Anesthesia Assessment and Plan Anesthesia History Personal History: No History of Anesthesia Complications Family History: No Family History of Anesthesia Complications Exercise Tolerance Exercise Tolerance: Metabolic Equivalents>4 Pertinent Negatives Pertinent Negatives: No Symptoms of GERD, No Major Cardiovascular Symptoms or Complaints and No Major Pulmonary Symptoms or Complaints Cardiac & Pulmonary Exam Cardiac Exam: Normal S1/S2 Heart Sounds Pulmonary Exam: Clear Bilateral Breath Sounds Implantable Cardiac Device Does patient have a Pacemaker or an ICD?: No Airway Exam Known Difficult Airway: No Mallampati Class: 1 Mouth Opening: Normal (> 3cm) Thyromental Distance: Greater than 3 cm Neck Range of Motion: Full ROM Neck Circumference: Normal Teeth Condition: Normal Dentition ASA Classification ASA Score: ASA 2 Emergency Case?: No NPO Status NPO Status: NPO Clears >2 hours, Solids >8 hours Anesthesia Plan Resuscitation Status: Full Code Anesthesia Technique: MAC Anesthesia Airway Planned: Natural Airway Monitors Used: Standard Monitors
[2025-06-01 07:10] VITALS: BMI 34.9
[2025-06-01] MEDS: Lidocaine 1% Pres-Free 5 ML VIAL (07:47)
[2025-06-01] MEDS: Moxifloxacin-PF 1 MG/ML VIAL (07:47)
[2025-06-01] MEDS: Trypan Blue 0.06% 0.5 ML SYR (07:48)
[2025-06-01] MEDS: Phenylephrine/Lidocaine (15/10) MG/ML 1 ML VIAL (07:48)
[2025-06-01] MEDS: Duovisc Viscoelastic System EACH 1 EACH (07:49)
[2025-06-01] MEDS: Povidone-Iodine Ophth 30 ML BTL (07:49)
[2025-06-01] MEDS: Balanced Salt Soln.-PLUS 500 ML BAG OP (07:50)
[2025-06-01] MEDS: Prednisolone 1%, Moxifloxacin 0.5%, Bromfenac 0.09% 5.6ML BTL OS (07:50)
[2025-06-01] MEDS: Tetracaine 0.5% 4 ML BTL OS (07:51)
--- NOTE | 2025-06-01 08:18 | W.PM.DSUDISC ---
Date of service: 06/01/25 Discharge Plan Disposition Patient Disposition: Home Discharge Details Attending Provider: Sj Mckeon Primary Care Provider: Kathrin Rosas Home Meds and New Rx's Prescriptions: No Action vitamin B complex Capsule 1 cap PO DAILY magnesium oxide 500 mg tablet 1,000 mg PO DAILY acamprosate 333 mg tablet,delayed release (DR/EC) 999 mg PO BID Rx Instructions: administer with mid-day and evening meals (DME) Aerochamber MV Spacer See Rx Instructions .Route Qty: 1 0RF Rx Instructions: As directed aspirin 81 mg tablet,delayed release (DR/EC) 81 mg PO DAILY Patient Comments: Prevention--CRC & CVA/NM venlafaxine 150 mg tablet extended release 24hr 75 mg PO QAM Patient Comments: takes with 50mg tab at hs Galzin 50 mg (zinc) capsule 50 mg PO DAILY wlwbh-budjo-5-enl-jiu-cqsrry [krill oil] 850-43-30-50 mg capsule 1 cap PO DAILY lutein 20 mg capsule 20 mg PO DAILY Rx Instructions: give with meal/snack acetylcysteine [NAC] 600 mg capsule 600 mg PO BID trazodone 50 mg tablet 50 mg PO HS PRN clonazepam 1 mg tablet 1 mg PO QID PRN Rx Instructions: 1/2 to 1 tab by mouth four times a day as needed. lithium carbonate 450 mg tablet extended release 1,125 mg PO HS amlodipine 5 mg tablet 5 mg PO DAILY glutathione 500 mg capsule 500 mg PO DAILY omeprazole 20 mg capsule,delayed release(DR/EC) 20 mg PO DAILY PRN Rx Instructions: Or as directed for barretts esophagus. cholecalciferol (vitamin D3) 125 mcg (5,000 unit) capsule 5,000 unit PO DAILY Discharge Instructions Stand Alone Forms: [facility] Post-Op Cataract, Gloria Garcia (DS[facility]), Portal Information Discharge Orders Discharge Orders: Discharge Order (Routine); Ordered 06/01/25 Ordered By: Sj Mckeon DS: Diagnosis Discharge Diagnosis (1) Posterior subcapsular age-related cataract of left eye: Status: Resolved (2) Nuclear age-related cataract, left eye: Status: Resolved
--- NOTE | 2025-06-01 08:18 | W.PM.OP ---
Operative Note Operative Note PRE-OP DIAGNOSIS: Nuclear/posterior subcapsular cataract, left eye POST-OP DIAGNOSIS: same PROCEDURE: Cataract extraction using phacoemulsification with intraocular lens implant, left eye SURGEON: Sj Mckeon ANESTHESIA TYPE: Local By Surgeon and MAC Refer to Anesthesia Record PATHOLOGY: none sent COMPLICATIONS: None Patient was transported to: same day Patient's condition: stable Implants: Anatoliy Clareon [id number] Indications: Progressive decreased vision due to cataract, left eye Procedure Description: CATARACT SURGERY OPERATIVE REPORT PREOPERATIVE DIAGNOSIS: Nuclear/posterior subcapsular cataract, left eye POSTOPERATIVE DIAGNOSIS: Same OPERATION: Cataract extraction using phacoemulsification with posterior chamber intraocular lens implant, left eye. IOL: IOL Senior Relationship Manager/Model: Anatoliy Clareon [id number] IOL Power: + 21.0 diopters IOL Serial Number: [id number] Optic Diameter: 6.0mm Haptic/Overall Diameter: 13.0mm PHACO INFO: Anatoliy Centurion Vision System with OZil and Active Fluidics Cumulative Dispersed Energy (CDE): 1.39 seconds SURGEON: Sj Mckeon MD, ERI ANESTHESIA: Monitored Anesthesia Care (MAC), with local sub-tenon's anesthetic infiltration COMPLICATIONS: None SPECIMENS: None INDICATIONS FOR PROCEDURE: The patient is a 64-year-old male with history of diminished visual acuity in his left eye secondary to the development of nuclear/posterior subcapsular cataract. He is significantly symptomatic that he desires cataract surgery and attempt to improve and maximize his vision. The option of cataract surgery was offered to the patient and he wished to proceed. See office notes for detailed information. PROCEDURE: The correct surgical eye was identified and marked as the left eye and the pupil was dilated in the preoperative area using mydriatics and cycloplegics. The patient elected to proceed without oral sedation. The patient was brought to the operating room where cardiopulmonary monitoring was instituted and surgical time-out was performed, confirming the correct operative eye and IOL power. Topical anesthesia was administered and ophthalmic povidone-iodine 5% was instilled into the conjunctival fornices. The cristino-ocular area was prepped with Betadine 10% solution and draped in the usual sterile fashion for intraocular surgery, including an aperture drape. A Tegaderm transparent film dressing was cut in half and used to cover the lashes and lid margins. Care was taken to sequester the lashes and lid margins under the Tegaderm dressing. A lid speculum was placed between the lids of the operative eye and the Anatoliy LuxOR Revalia operating microscope was maneuvered into position. At this point, the patient began to feel claustrophobic, so the drapes were retracted, intravenous access was obtained and Versed 2 mg IV was administered. Tha scissors were then used to make a conjunctival buttonhole approximately 6mm posterior to the limbus in the inferonasal quadrant. Blunt dissection was carried out to expose bare sclera, and a blunt-tipped sub-tenon’s anesthesia cannula was introduced and passed posteriorly along the globe where non-preserved plain lidocaine was injected into posterior sub-Tenon’s space. A sideport knife was used to make a paracentesis port. VisionBlue was injected into the anterior chamber and allowed to sit for 30 seconds. Intraocular phenylephrine/lidocaine was injected into the anterior chamber. The anterior chamber was then filled with viscoelastic. A keratome knife was used construct a two-plane clear corneal tunnel extending 2.0mm into clear cornea. A flap was raised on the anterior capsule and capsulorhexis forceps were used to complete a continuous curvilinear capsulorhexis of 5.0 mm. Balanced salt solution was then used to perform cortical cleaving hydrodissection and nuclear hydrodelineation until the lens could be freely rotated within the capsular bag. The lens nucleus was then disassembled and removed within the capsular bag and iris plane using phacoemulsification. Residual cortical material was removed using the irrigation/aspiration handpiece. The posterior capsule was carefully polished to remove as much residual lens epithelial cells as safely possible. The capsular bag was then inflated and the anterior chamber deepened with viscoelastic. The lens implant described above was inserted into the capsular bag using the Anatoliy Autonome Injector. A Kuglen hook was used to dial the IOL into position. Residual viscoelastic was then removed first from posterior to the IOL, then from the anterior chamber using the I/A handpiece. The lens implant was noted to center nicely within the capsular bag. The incisions were stromally hydrated, and the anterior chamber was reformed using BSS. Then 0.5cc of moxifloxacin 1.0mg/ml were injected into the capsular bag and anterior chamber. The incisions were checked with a Weck spear and found to be secure. Several drops of ophthalmic povidone-iodine 5% were then applied to the eye followed by two drops of combination steroid/NSAID/antibiotic solution. The drapes were removed and a clear plastic protective eye shield was placed over the eye. The patient was then returned to Same Day Surgery in stable condition. Date of Procedure: 06/01/25
[2025-06-01 08:43] VITALS: BP 132/90; PULSE 60; RESP 16; TEMP 36.7; O2SAT 99
[2025-06-01 08:45] VITALS: BP 117/87; PULSE 48; RESP 17; TEMP 36.7; O2SAT 95
--- NOTE | 2025-06-01 08:46 | W.ANESPOSTOP ---
Postoperative Evaluation Date, Time and Location Date Performed: 06/01/25 Time Performed: 08:46 Patient Location: Day Surgery Unit Vital Signs Most Recent Imported Vital Signs: Most Recent Vital Signs Temp Pulse Resp BP Pulse Ox 36.7 C 60 16 132/90 99 06/01/25 08:43 06/01/25 08:43 06/01/25 08:43 06/01/25 08:43 06/01/25 08:43 Pain Score Most Recent Pain Score: Most Recent Pain Score Pain Level 0 06/01/25 08:43 Assessment Mental Status: Awake (Alert & Oriented to Patient Baseline) Airway and Respiratory Function: Patent airway with normal (patient baseline) respiratory exam Cardiovascular Function: Hemodynamically Stable Hydration Status: Adequately Hydrated Nausea & Vomiting: No Nausea or Vomiting Pain: Pt. Denies Any Pain Peripheral Nerve Block: Patient did not receive a nerve block
== END 2025-06-01 08:50 | disposition home or self-care (01) ==
LOC: SUR 06:14
PROVIDERS: PCP Nurse Practitioner Adult Health; Visit Provider Ophthalmology
PROC: (CPT 66984; principal; 2025-06-01 07:30)
DX: H25.12 Age-related nuclear cataract, left eye (principal); H25.042 Posterior subcapsular polar age-related cataract, left eye; K21.9 Gastro-esophageal reflux disease without esophagitis; G47.33 Obstructive sleep apnea (adult) (pediatric)
CPT/HCPCS: 66984; 00123; V2632; J2003; J2250